=== PATIENT | male | born 1950 | race Caucasian/White ===

== ENCOUNTER 2018-08-13 14:16 | Outpatient (CLI) | payer BC, SELFPAY ==
[2018-08-13 16:40] LABS: BUN 19 mg/dL (7-18); CREATININE 1.28 mg/dL (0.70-1.30); Chloride 102 mmol/L (98-107); Estimated GFR 56.23 (mL/min/1.73m2); Glucose 98 mg/dL (70-100); Potassium 3.8 mmol/L (3.5-5.1); Sodium 142 mmol/L (136-145)
== END 2018-08-13 14:36 ==
PROVIDERS: PCP General Practice; Visit Provider General Practice
DX: I10 Essential (primary) hypertension (principal); R73.09 Other abnormal glucose
CPT/HCPCS: 36415; 80051; 82947; 84520; 82565

== ENCOUNTER 2018-10-02 08:08 | Day surgery (SDC) | payer BC, SELFPAY ==
[2018-10-02 08:20] VITALS: BP 164/94; PULSE 84; RESP 18; TEMP 37.1; O2SAT 95
[2018-10-02] MEDS: Lactated Ringers 1,000 ML 80 ML IV (08:56)
--- NOTE | 2018-10-02 11:00 | COLE_ITS ---
Date of service: 10/02/18 Time of Service: 10:58 Colonoscopy Report Date of procedure: 10/02/18 Pre-op diagnosis general: rectal bleeding Post-op diagnosis procedure note: same Procedure: CE Surgeon: Shanel Anderson Anesthesia proc note operative: GETA Estimated blood loss (mL): 0 Pathology: none sent Complications: None Disposition: PACU Prep: Miralax Retraction Time: 10 mins Procedure Description: After informed consent was obtained the patient was taken to the procedure room and placed in a left decubitous position. Monitors were applied and a time out was done. The patients name, date of , procedure, allergies to medications and metal in their body was reviewed. The patient was then sedated. Once sedated and comfortable a rectal exam was done. External exam minor hemorrhoidal Dx. Internal exam revealed a normal sphincter tone and no palpable masses. The prostate nl. The scope was then introduced and retrofelexed. grade 1 internal hemorrhoids were identified. The scope was then advanced to the cecum without difficulty. The TI and appendiceal orifice were identified. The prep was good. The scope was then slowly retracted over 10 minutes back into the rectum. The scope was removed and the patient was woken up and taken back to Same day surgery in stable condition. The patient tolerated the procedure well and there were no immediate co mplications. Follow up: The patient does not reqire any further CE unless they develop changes in bowel habits or other new gastrointestinal complaints.
--- NOTE | 2018-10-02 11:00 | W.PM.DSUDISC ---
Discharge Plan Disposition Patient Disposition: HOME Condition: Good Discharge Details Reason For Visit: colon scope Attending Provider: Shanel Anderson Primary Care Provider: Freddy Mcdowell Home Meds and New Rx's Prescriptions: Continued losartan 100 mg tablet 100 mg PO DAILY RF: 0 atenolol 25 MG tablet 25 mg PO DAILY RF: 0 hydrochlorothiazide 12.5 MG capsule 12.5 mg PO DAILY RF: 0 Discontinued polyethylene glycol 3350 17 gram/dose powder 238 g PO ONCE Qty: 238 RF: 0 bisacodyl [Dulcolax (bisacodyl)] 5 mg tablet,delayed release (DR/EC) 5 mg PO ONCE Qty: 4 RF: 0 Discharge Instructions Instructions: High Fiber Diet (GEN) Additional Instructions: Findings:minimal hemorrhoidal Dx Follow up: does not require further scope. Start fiber product. Work up to BID dosing Please call if you develop: fevers >101.5 Nausea or Vomiting Abdominal pain that is not transient DAY SURGERY UNIT POST COLONOSCOPY INSTRUCTIONS 1. Because there will be medication in your system for the next 24 hours, you may feel a little sleepy. Your coordination will be affected. Therefore: a. Do not drive or operate dangerous equipment for 24 hours. b. Do not drink alcohol beverages for 24 hours (not even beer). c. Plan to go home and rest for the day. 2. Generally there are no restrictions on your activity after a day or so has gone by, but you may feel a bit fatigued for a few days. 3 After you arrive home you may have a light meal and return to a normal diet as you can tolerate it without feeling sick to your stomach. 4. After surgery, you may feel pain or discomfort. This should be only transient, but if it persists please contact your doctor. 5. If there are any questions regarding the findings of your procedure, please feel free to contact your doctor. 6. If you are unable to contact your doctor with a problem, contact the hospital at [phone]. 7. Continue all your regular medications unless directed otherwise. I understand the above instructions and have no questions. Signature of Patient or Responsible Adult Escort Date/Time Name of Responsible Adult Escort Signature of Nurse Date/Time Activity:: nl heavy lifting or strenuous acitvity x 24 hrs Shower/Bathe:: 24 hours Diet:: sm lt meals Discharge Orders Discharge Orders: Discharge Order (Routine); Ordered 10/02/18 Ordered By: Shanel Anderson DS: Diagnosis Discharge Diagnosis (1) Hemorrhoids: Status: Acute
[2018-10-02 11:35] VITALS: BP 160/86; PULSE 70; RESP 16; TEMP 37.2; O2SAT 95
== END 2018-10-02 12:50 | disposition home or self-care (01) ==
PROVIDERS: PCP General Practice; Visit Provider Surgery
PROC: 0DJD8ZZ Inspection of Lower Intestinal Tract, Via Natural or Artificial Opening Endoscopic (ICD-10-PCS; CPT 45378; principal; 2018-10-02 09:00)
DX: Z12.11 Encounter for screening for malignant neoplasm of colon (principal); K62.5 Hemorrhage of anus and rectum; K64.0 First degree hemorrhoids; I10 Essential (primary) hypertension
CPT/HCPCS: 45378

== ENCOUNTER 2019-04-13 07:23 | Outpatient (CLI) | payer BC, SELFPAY ==
[2019-04-13 08:24] LABS: Glucose 107 mg/dL (74-106)
== END 2019-04-13 07:43 ==
PROVIDERS: PCP General Practice; Visit Provider General Practice
DX: R73.09 Other abnormal glucose (principal)
CPT/HCPCS: 36415; 82947

== ENCOUNTER 2019-06-01 07:33 | Emergency (ER) | payer BC, SELFPAY ==
[2019-06-01 07:41] VITALS: BP 189/108; PULSE 77; RESP 16; TEMP 36.8; O2SAT 94
--- NOTE | 2019-06-01 07:58 | ED.GENADUL_ITS ---
Discharge Plan Disposition Patient Disposition: HOME Condition: Stable Discharge Details Chief Complaint: RespSymp Clinical Impression: Acute upper respiratory infection Primary Care Provider: None,None ED Provider: Mak Royal Home Meds and New Rx's Prescriptions: New prednisone 20 mg tablet 60 mg PO DAILY 4 Days Qty: 12 RF: 0 doxycycline hyclate 100 mg tablet 100 mg PO BID Qty: 14 RF: 0 Continued losartan 100 mg tablet 100 mg PO DAILY RF: 0 atenolol 25 MG tablet 25 mg PO DAILY RF: 0 hydrochlorothiazide 12.5 MG capsule 12.5 mg PO DAILY RF: 0 ibuprofen 400 mg Tablet 400 mg PO Q6H RF: 0 Discharge Instructions Instructions: Upper Respiratory Infection (ED) Additional Instructions: I placed you on our follow up list to get established with a new primary care provider if you feel more ill, have high fevers or worsening trouble breathing return to the emergency department Medical Decision Making 69 yo male with hx of htn who comes in with chief complaint of cough. He felt a cough and congestion last week without fevers, felt better but this morning cough started and had some chills without fever. No distress on exam speaking in full sentences with clear lungs and laughing intermittently, has clear rhinorrhea on exam. No travel. Suspect uri but will obtain xray to eval for infiltrate and check for influenza pt remains stable, flu and xray negative on my read. Will treat as early pna with doxy and also start on prednisone. Advised f/u with pcp within a week especially if not improving and return precautions given Differential Diagnosis Differential Diagnosis: flu, uri, pna Imaging Data Radiologic Study: Attestation: I personally reviewed and interpreted this imaging study as follows: Imaging: X-Ray My impression: no acute findings HPI General Mode of arrival: ambulatory . Date/Time Provider Initiated Documentation: 06/01/19 07:54 . Limitations to Documentation: no limitations . Information obtained by: patient . History of Present Illness 69 year old M presents to the emergency department with the chief complaint of cough, described as moderate, Patient started experiencing this day(s) (1) and it has been constant. No relieving factors improve symptom(s), No exacerbating factors reported . Patient did receive the following treatments prior to arrival, none Related Data Home Medications Medication Instructions Recorded Confirmed atenolol 25 mg PO DAILY 07/30/12 06/01/19 hydrochlorothiazide 12.5 mg PO DAILY 07/30/12 06/01/19 losartan 100 mg tablet 100 mg PO DAILY 09/03/18 06/01/19 doxycycline hyclate 100 mg PO BID #14 tab 06/01/19 ibuprofen 400 mg PO Q6H 06/01/19 06/01/19 prednisone 60 mg PO DAILY 4 Days #12 tab 06/01/19 Previous Rx's Medication Instructions Recorded doxycycline hyclate 100 mg PO BID #14 tab 06/01/19 prednisone 60 mg PO DAILY 4 Days #12 tab 06/01/19 Allergies Allergy/AdvReac Type Severity Reaction Status Date / Time HIEU Inhibitors AdvReac Unknown cough Verified 06/01/19 07:48 General Stated Complaint: RespSymp NAVDEEP: 3 Review of Systems All systems reviewed & are unremarkable except as noted in HPI and below Constitutional Constitutional: Denies fever(s) and Denies weakness Cardiovascular Cardiovascular: Denies chest pain and Denies dyspnea Respiratory Respiratory: Denies dyspnea Gastrointestinal Gastrointestinal: Denies abdominal pain, Denies nausea and Denies vomiting Musculoskeletal Musculoskeletal: Denies joint swelling Neurologic Neurologic: Denies weakness [facility] Family History (Updated 10/02/18 @ 08:22 by Kay Grace) Other Cancer Social History Smoking/Tobacco Use Status: Former Tobacco Use Alcohol Intake: current Alcohol Intake frequency: a few times a week Drug use: Never Substance use type: does not use Do you feel safe at home: Yes Do you feel safe in your relationship?: Yes Exam Const General: no acute distress Orientation: alert HENMT Head: normal to inspection Ears: external ears normal General nose exam: external nose normal Mouth: moist mucous membranes Eyes General: appearance normal, both eyes and all related structures Neck Neck: normal visual inspection Resp Effort & Inspection: normal respiratory effort and able to speak in complete sentences Cardio Rate: regular rate Skin General skin exam: no rashes or lesions noted Neuro General: alert and oriented x3 Extrem General: normal to inspection Psych Mental Status: mental status grossly normal Course Vital Signs Vital signs: Vital Signs Temperature 36.8 C 06/01/19 07:41 Pulse 77 06/01/19 07:41 Respiratory Rate 16 06/01/19 07:41 Blood Pressure 189/108 H 06/01/19 07:41 Pulse Oximetry 94 L 06/01/19 07:41 Temperature 36.8 C 06/01/19 07:41 Temperature Source Temporal Artery Scan 06/01/19 07:41 Pulse 77 06/01/19 07:41 Respiratory Rate 16 06/01/19 07:41 Respiratory Effort Non-Labored 06/01/19 07:45 Respiratory Depth Normal 06/01/19 07:45 Blood Pressure 189/108 H 06/01/19 07:41 Blood Pressure Position Sitting 06/01/19 07:41 Pulse Oximetry 94 L 06/01/19 07:41 Oxygen Delivery Method Room Air 06/01/19 07:41 Oxygen Flow Rate 0 06/01/19 07:41 Pain Level 0 06/01/19 07:41 Lab/Test Results Lab/Test Results: 06/01/19 07:46 Nasopharynx Influenza Types A,B Antigen - Pending
--- NOTE | 2019-06-01 08:15 | DI.RAD_ITS ---
EXAM: XR CHEST 2V PA LATERAL INDICATION: cough. COMPARISON: CHEST 2 VIEWS PA,LAT from 08/11/2015 TECHNIQUE: 2D digital imaging was performed. FINDINGS: The heart is enlarged, unchanged. The lungs appear clear. No infiltrate, effusion or pulmonary mya a is seen. No acute abnormality.
[2019-06-01 08:53] VITALS: BP 161/91; PULSE 78; RESP 20; TEMP 36.8; O2SAT 98
[2019-06-01 08:58] VITALS: BP 161/91; PULSE 78; RESP 20; TEMP 36.8; O2SAT 98
== END 2019-06-01 08:58 | disposition home or self-care (01) ==
PROVIDERS: Emergency Provider Emergency Medicine
DX: J06.9 Acute upper respiratory infection, unspecified (principal); R68.3 Clubbing of fingers; I10 Essential (primary) hypertension; Z87.891 Personal history of nicotine dependence
CPT/HCPCS: 87449; 99283; 71046; 99284

== ENCOUNTER 2019-12-23 10:53 | Outpatient (REF) | payer BC, SELFPAY ==
[2019-12-23 21:14] LABS: Hemoglobin A1C 5.6 % (3.8-5.6)
[2019-12-23 21:53] LABS: ALT 26 U/L (16-63); AST 14 U/L (15-37); Alkaline Phosphatase 62 U/L (46-116); Anion Gap 8.6 mmol/L (3-11); BUN 20 mg/dL (7-18); Bilirubin, Total 0.5 mg/dL (0.2-1.0); CO2 28.4 mmol/L (21.0-32.0); CREATININE 1.08 mg/dL (0.70-1.30); Calcium 9.4 mg/dL (8.5-10.1); Calculated LDL 113 mg/dL (<100); Chloride 106 mmol/L (98-107); Cholesterol 168 mg/dL (<200); Glucose 98 mg/dL (74-106); HDL Cholesterol 37 mg/dL (40-60); Potassium 3.9 mmol/L (3.5-5.1); Sodium 143 mmol/L (136-145); Total Protein 6.8 g/dL (6.4-8.2); Triglyceride 93 mg/dL (<150)
[2019-12-27 08:41] LABS: PSA, Screening 2.1 ng/mL (0.0-4.5)
== END 2019-12-23 11:13 ==
LOC: NCHCN 10:53
PROVIDERS: PCP Physician Assistant; Visit Provider Physician Assistant
DX: I10 Essential (primary) hypertension (principal); R73.03 Prediabetes; Z12.5 Encounter for screening for malignant neoplasm of prostate
CPT/HCPCS: 80053; 80061; 84153; 83036

== ENCOUNTER 2020-01-19 09:15 | Outpatient (CLI) | payer BC, SELFPAY ==
--- NOTE | 2020-01-19 09:15 | DI.RAD_ITS ---
EXAM: XR SHOULDER RT COMPLETE 2+V CLINICAL HISTORY: right shoulder pain TECHNIQUE: COMPARISON: CR RIGHT SHOULDER COMPLETE from 12/02/2013 FINDINGS: Three views were obtained. There is severe loss of the cartilaginous joint space of the glenohumeral joint with marked remodeling of the humeral head and glenoid fossa, very prominent hypertrophic merari inal osteophytes are noted particularly inferiorly at the humeral head. There is marked subchondral sclerosis and cyst formation. Moderate hypertrophic degenerative changes acromioclavicular joint as well. IMPRESSION: End-stage degenerative changes of glenohumeral joint as described above. RADIATION DOSE DELIVERED: Total DLP
--- NOTE | 2020-01-19 09:45 | DI.RAD_ITS ---
EXAM: XR KNEE RT 3V AP,LAT,NOAH CLINICAL HISTORY: right knee pain TECHNIQUE: COMPARISON: CR RIGHT KNEE 3 VIEWS from 09/10/2012 FINDINGS: Three views were obtained. There is severe narrowing of the medial tibiofemoral cartilaginous joint space. There are very prominent hypertrophic marginal osteophytes involving all joints of the knee. There is marked subchondral sclerosis of the components of the medial tibiofemoral joint. IMPRESSION: Severe DJD predominantly involving medial tibiofemoral joint. RADIATION DOSE DELIVERED: Total DLP
== END 2020-01-19 09:35 ==
PROVIDERS: PCP Physician Assistant; Referring Provider Physician Assistant; Visit Provider Student in an Organized Health Care Education/Training Program
DX: M17.11 Unilateral primary osteoarthritis, right knee (principal); M19.011 Primary osteoarthritis, right shoulder
CPT/HCPCS: 73562; 73030

== ENCOUNTER 2020-03-03 15:37 | Emergency (ER) | payer BC, SELFPAY ==
[2020-03-03 15:47] VITALS: BP 157/80; PULSE 75; RESP 14; TEMP 36.2; O2SAT 96
--- NOTE | 2020-03-03 16:15 | ED.GENADUL_ITS ---
Discharge Plan Disposition Patient Disposition: HOME Condition: Stable Discharge Details Clinical Impression: Lumbago, Degenerative arthritis of lumbar spine Primary Care Provider: Reece Pastrana ED Provider: Yoanna Pedersen Home Meds and New Rx's Prescriptions: New tramadol 50 mg tablet 50 mg PO BID PRN (Reason: pain) Qty: 7 RF: 0 cyclobenzaprine 10 mg tablet 10 mg PO TID PRN (Reason: muscle spasm) Qty: 10 RF: 0 Continued hydrochlorothiazide 12.5 mg capsule 25 mg PO DAILY RF: 0 atenolol 25 mg tablet 50 mg PO DAILY RF: 0 losartan 100 mg tablet 100 mg PO DAILY RF: 0 ibuprofen 400 mg Tablet 400 mg PO Q6H RF: 0 Discharge Instructions Instructions: Low Back Strain (ED), Degenerative Disc Disease (ED) Additional Instructions: Follow up with primary care provider in 3-5 days. Return to ED sooner if any worsening or concerns. Increase oral fluids. Please take Tylenol or Ibuprofen with food every 4-6 hours as needed for pain and swelling. Alternate ice and heat. Take medications as prescribed. Return for any loss of bowel or bladder control, numbness tingling or any worsening. Referrals: Reece Pastrana [Primary Care Provider] - Discharge Data Discharge Date/Time-TO BE ENTERED AT DEPARTURE: 03/03/20 17:26 Medical Decision Making 70 year old male presents with right lower lumbar and hip pain which he first noticed 1 week ago. He reports he was twisting while carrying some heavy items and it increased. Denies any saddle anesthesia, no loss of bowel or bladder. He has been taking Aleve and ibuprofen with little to no relief. Has a history of arthritis of knee, hemorrhoids, hypertension. X-ray of lumbar spine and right hip ordered. Patient received Flexeril, tramadol, and lidocaine patch here in department. Imaging protocol: XR Right hip with pelvis when performed. Views: 2 or 3 views. COMPARISON: No relevant prior studies available. FINDINGS: Bones/joints: No acute fracture or dislocation. Mild bilateral hip joint space narrowing. Soft tissues: Unremarkable. IMPRESSION: 1. No acute fracture or dislocation of the right hip. 2. Mild joint space narrowing. Imaging protocol: XR of the lumbosacral spine, 4 or 5 views. COMPARISON: No relevant prior studies available. FINDINGS: Bones/joints: The vertebral body heights and the alignment are well preserved. Mild L4-L5 disc space narrowing. Moderate to severe narrowing at the remainder of the levels. Multilevel anterior osteophytes as well as lateral osteophytes. Posterior facet hypertrophy with moderate neural foraminal narrowing at L5-S1. Soft tissues: Unremarkable. Vasculature: Severe atherosclerotic vascular calcifications of the abdominal aorta. IMPRESSION: Moderate to severe multilevel degenerative disease in the lumbar spine with moderate L5-S1 neural foraminal narrowing likely due to osteophytes and facet hypertrophy. Thank you for allowing us to participate in the care of your patient. Dictated and Authenticated by: Jonathan Klein MD Discussed x-ray results with patient verbalized understanding. Patient was given a prescription for tramadol and a muscle relaxer and instructed to follow- up. Discussed strict return instructions. Patient was hemodynamically stable at the time of this dictation. This text was generated using [employer]ation system, please disregard any oddities of phrase or misspellings. HPI General Mode of arrival: ambulatory . Date/Time Provider Initiated Documentation: 03/03/20 16:04 . Limitations to Documentation: no limitations . Information obtained by: patient . HPI Narrative: 70 year old male presents with right lower lumbar and hip pain which he first noticed 1 week ago. He reports he was twisting while carrying some heavy items and it increased. Denies any saddle anesthesia, no loss of bowel or bladder. He has been taking Aleve and ibuprofen with little to no relief. Has a history of arthritis of knee, hemorrhoids, hypertension. Related Data Home Medications Medication Instructions Recorded Confirmed losartan 100 mg tablet 100 mg PO DAILY 09/03/18 03/03/20 ibuprofen 400 mg PO Q6H 06/01/19 01/19/20 atenolol 25 mg tablet 50 mg PO DAILY tab 01/12/20 03/03/20 hydrochlorothiazide 12.5 mg capsule 25 mg PO DAILY cap 01/12/20 03/03/20 cyclobenzaprine 10 mg PO TID PRN #10 tab 03/03/20 tramadol 50 mg PO BID PRN #7 tab 03/03/20 Previous Rx's Medication Instructions Recorded cyclobenzaprine 10 mg PO TID PRN #10 tab 03/03/20 tramadol 50 mg PO BID PRN #7 tab 03/03/20 Allergies Allergy/AdvReac Type Severity Reaction Status Date / Time HIEU Inhibitors AdvReac Unknown cough Verified 03/03/20 15:53 General Stated Complaint: Nk/Back Pain NAVDEEP: 3 Review of Systems Narrative: Constitutional: Negative for weight loss, alert and oriented, well groomed, normal body habitus, appears comfortable. HEENT: Denies trauma, headaches, blurry vision, nasal discharge, sore throat, trouble swallowing. Chest: Denies chest pain, palpitations, irregular rhythm, hypertension. Respiratory: Denies Shortness of breath, cough, hemoptysis. GI: Denies abdominal pain, nausea, vomiting, diarrhea, constipation. : Denies dysuria, hematuria, flank pain, rectal bleeding. Neuro: Denies dizziness, blurry vision, weakness, syncope, headache or facial numbness. Hematologic: Denies easy bruising, intolerance to heat or cold, hair loss. PFSH Medical History Blood per rectum Constipation HTN (hypertension) Surgical History History of colonoscopy Family History Other Cancer Social History Smoking/Tobacco Use Status: Former Tobacco Use Smoking risk assessment performed?: Yes Alcohol Intake: current Alcohol Intake frequency: a few times a week Drug use: Never Substance use type: does not use Current gender identity: male Do you feel safe at home: Yes Do you feel safe in your relationship?: Yes Exam Narrative Exam Narrative: Constitutional: Alert and oriented x3. Appears stated age. Normal body habitus. Head: Normocephalic, no trauma. Eyes: Pupils PERRLA, Red reflex noted, EOM's intact. Eyelids symmetrical without lesions, discharge, or swelling. ENT: Bilateral TM's WNL, External ear normal to inspection, no mastoid TTP, swelling, or erythema, Nasal turbinates WNL, no nasal discharge. Normal dentition, Posterior pharynx WNL, no exudate. Chest: RRR, Normal S1, S2, distal pulses intact. Resp: Lungs clear to auscultation bilaterally, no wheezes, rales, or rhonchi. Musculoskeletal: Normal gait, 5/5 strength to all four extremities. Complaining of right lower lumbar tenderness and right hip pain described as spasm. No midline spine tenderness or step-off noted. Skin: No suspicious rashes or lesions. Capillary refill less than 2 sec. Neurologic: Cranial nerves II-XII intact. Alert and oriented x 3. DTR's intact. Hematologic/Lymphatic: No ecchymosis, no lymphadenopathy. Course Vital Signs Vital signs: Vital Signs Temperature 36.2 C L 03/03/20 15:47 Pulse 75 03/03/20 15:47 Respiratory Rate 14 03/03/20 15:47 Blood Pressure 157/80 H 03/03/20 15:47 Pulse Oximetry 96 03/03/20 15:47 Temperature 36.2 C L 03/03/20 15:47 Pulse 75 03/03/20 15:47 Respiratory Rate 14 03/03/20 15:47 Respiratory Effort Non-Labored 03/03/20 15:53 Blood Pressure 157/80 H 03/03/20 15:47 Blood Pressure Position Sitting 03/03/20 15:47 Pulse Oximetry 96 03/03/20 15:47 Oxygen Delivery Method Room Air 03/03/20 15:47 Oxygen Flow Rate 0 03/03/20 15:47 Pain Level 10 03/03/20 15:47 Comment 03/03/20 15:47
[2020-03-03] MEDS: traMADol 50 MG TAB PO (16:45)
[2020-03-03] MEDS: Lidocaine 5% Patch 1 PATCH TP (16:45)
[2020-03-03] MEDS: Cyclobenzaprine 10 MG TAB PO (16:45)
--- NOTE | 2020-03-03 16:48 | DI.RAD_ITS ---
EXAM: XR LUMBAR SPINE COMPLETE CLINICAL HISTORY: Lower lumbar, hip pain. TECHNIQUE: 2D digital imaging was performed. COMPARISON: No exams were available for comparison FINDINGS: There are 5 lumbar type vertebral bodies. There is normal alignment. No spondylolysis or spondyloli sthesis. Moderate to severe joint space narrowing is present. The findings are most marked at the L 2-3 and L5-S1 disc levels. There are endplate osteophytes at multiple levels. Facet arthropathy see n throughout the lumbar spine. No acute fracture or subluxation is present. There is atherosclerosi s present. IMPRESSION: Moderate to severe multilevel degenerative changes in the lumbar spine. DATA REPOSITORY: RADIATION DOSE DELIVERED:
--- NOTE | 2020-03-03 16:48 | DI.RAD_ITS ---
EXAM: XR HIP RT COMPLETE AP PELVIS CLINICAL HISTORY: Right hip pain. TECHNIQUE: 2D digital imaging was performed. COMPARISON: No exams were available for comparison FINDINGS: BONES: No acute fracture is present. No bony destructive lesion is seen. JOINTS: No dislocation present. Mild degenerative changes of the hips bilaterally. SOFT TISSUE: Normal. IMPRESSION: No acute abnormality. Mild degenerative changes of the hips. DATA REPOSITORY: RADIATION DOSE DELIVERED:
--- NOTE | 2020-03-03 16:58 | DI.VRAD_ITS ---
PROCEDURE INFORMATION: Exam: XR Lumbosacral Spine, 4 or 5 Views Exam date and time: 03/03/2020 4:43 PM Age: 70 years old Clinical indication: Low back pain; Patient HX: Lower lumbar RT hip pain/ no trauma TECHNIQUE: Imaging protocol: XR of the lumbosacral spine, 4 or 5 views. COMPARISON: No relevant prior studies available. FINDINGS: Bones/joints: The vertebral body heights and the alignment are well preserved. Mild L4-L5 disc space narrowing. Moderate to severe narrowing at the remainder of the levels. Multilevel anterior osteophytes as well as lateral osteophytes. Posterior facet hypertrophy with moderate neural foraminal narrowing at L5-S1. Soft tissues: Unremarkable. Vasculature: Severe atherosclerotic vascular calcifications of the abdominal aorta. IMPRESSION: Moderate to severe multilevel degenerative disease in the lumbar spine with moderate L5-S1 neural foraminal narrowing likely due to osteophytes and facet hypertrophy. Dictated and Authenticated by: Jonathan Klein MD. Ordering:JULIO Lenz MD
--- NOTE | 2020-03-03 16:59 | DI.VRAD_ITS ---
PROCEDURE INFORMATION: Exam: XR Right Hip with Pelvis when Performed Exam date and time: 03/03/2020 4:43 PM Age: 70 years old Clinical indication: Right hip; Patient HX: RT hip pain/back pain TECHNIQUE: Imaging protocol: XR Right hip with pelvis when performed. Views: 2 or 3 views. COMPARISON: No relevant prior studies available. FINDINGS: Bones/joints: No acute fracture or dislocation. Mild bilateral hip joint space narrowing. Soft tissues: Unremarkable. IMPRESSION: 1. No acute fracture or dislocation of the right hip. 2. Mild joint space narrowing. Dictated and Authenticated by: Jonathan Klein MD. Ordering:JULIO Lenz MD
[2020-03-03 17:25] VITALS: BP 140/79; PULSE 75; RESP 14; TEMP 36.5; O2SAT 96
== END 2020-03-03 17:26 | disposition home or self-care (01) ==
PROVIDERS: Emergency Provider Registered Nurse Emergency; PCP Physician Assistant
DX: M47.896 Other spondylosis, lumbar region (principal); M25.551 Pain in right hip; I10 Essential (primary) hypertension
CPT/HCPCS: 99284; 72110; 73502

== ENCOUNTER 2020-05-16 01:30 | Outpatient (CLI) | payer BC, SELFPAY ==
--- NOTE | 2020-05-16 | DI.US_ITS ---
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 The no mural thrombus is seen. IMPRESSION: No evidence of abdominal aortic aneurysm. DATA REPOSITORY:
== END 2020-05-16 01:50 ==
PROVIDERS: PCP Nurse Practitioner Family; Visit Provider Nurse Practitioner Family
DX: Z87.891 Personal history of nicotine dependence (principal); Z00.00 Encounter for general adult medical examination without abnormal findings
CPT/HCPCS: 76706

== ENCOUNTER 2020-12-26 13:25 | Outpatient (REF) | payer BC, SELFPAY ==
[2020-12-26 14:29] LABS: Anion Gap 9.2 mmol/L (3-11); BUN 24 mg/dL (7-18); CO2 27.8 mmol/L (21.0-32.0); CREATININE 1.3 mg/dL (0.70-1.30); Calcium 9.4 mg/dL (8.5-10.1); Chloride 108 mmol/L (98-107); Glucose 106 mg/dL (74-106); Potassium 3.9 mmol/L (3.5-5.1); Sodium 145 mmol/L (136-145)
[2020-12-26 15:06] LABS: Hemoglobin A1C 5.6 % (<5.7)
== END 2020-12-26 13:26 | disposition home or self-care (01) ==
LOC: NCHCN 13:25
PROVIDERS: PCP Nurse Practitioner Family; Visit Provider Internal Medicine
DX: R73.03 Prediabetes (principal); I10 Essential (primary) hypertension
CPT/HCPCS: 80048; 83036

== ENCOUNTER 2021-07-12 03:04 | Outpatient (CLI) | payer BC, SELFPAY ==
--- NOTE | 2021-07-12 09:00 | NS.NUTBLAN_ITS ---
Fito was referred for weight management education. 5' 300 lbs BMI: 44. Fito reports he has gained 30 lbs during covid due to lack of exercise. He is back to working and his more active again. 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 PMH: HTN, obesity, prediabetes. Meds: meloxicam, atenolol and losartan. Most recent labs: A1C: 5.6% x second year. Goal weight for Fito is 270 lbs. Sleeps from 11 pm to 3:30 am most nights. Having difficulty staying asleep. Reports continued concern about covid 19. Diet recall: skips breakfast and lunch. Has well balanced dinner at night with bowl of ice cream. Does not drink alcohol. Recent weight gain most likely due to decrease in activity, eating once daily and lack of sleep. Session today focused on ways to increase po intake during day to help increase metabolism. 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 When not working, would benefit from more exercise once knee and shoulder pain treated. Encouraged Fito to talk to his PCP re: difficulty sleeping as his current lack of sleep may be contributing to weight gain. No follow up planned at this time.
== END 2021-07-12 03:05 | disposition home or self-care (01) ==
LOC: DS 03:04
PROVIDERS: PCP Nurse Practitioner Family; Visit Provider Dietitian, Registered
DX: E66.8 Other obesity (principal); Z68.41 Body mass index [BMI] 40.0-44.9, adult; Z71.3 Dietary counseling and surveillance
CPT/HCPCS: 97802

== ENCOUNTER 2021-12-11 20:18 | Outpatient (REF) | payer MEDICARE, BC, SELFPAY ==
[2021-12-11 14:49] LABS: HCT 46.4 % (40.0-50.0); HGB 16.2 g/dL (13.5-17.5); MCH 29.5 pg (27.0-33.0); MCHC 34.9 % (32.0-36.0); MCV 84 fL (80-95); MPV 10.6 fL (8.0-11.0); Platelet Count 197 10^3/uL (130-400); RDW 13.4 % (11.8-14.1); RDW-SD 41.2 fL; WBC 6.26 10^3/uL (4.4-10.8)
[2021-12-11 15:12] LABS: ALT 27 U/L (16-63); AST 22 U/L (15-37); Alkaline Phosphatase 63 U/L (46-116); Anion Gap 9.9 mmol/L (3-11); BUN 19 mg/dL (7-18); Bilirubin, Total 0.7 mg/dL (0.2-1.0); CO2 27.1 mmol/L (21.0-32.0); CREATININE 1.3 mg/dL (0.70-1.30); Calcium 9.1 mg/dL (8.5-10.1); Chloride 104 mmol/L (98-107); Estimated GFR 54.73 (mL/min/1.73m2); Glucose 108 mg/dL (74-106); Potassium 3.8 mmol/L (3.5-5.1); Sodium 141 mmol/L (136-145); Total Protein 7.2 g/dL (6.4-8.2)
== END 2021-12-11 20:19 | disposition home or self-care (01) ==
LOC: NCHCN 20:18
PROVIDERS: PCP Nurse Practitioner Family; Visit Provider Nurse Practitioner Family
DX: I10 Essential (primary) hypertension (principal); E66.9 Obesity, unspecified; R73.03 Prediabetes
CPT/HCPCS: 80053; 84153; 85027

== ENCOUNTER 2021-12-18 08:49 | Outpatient (REF) | payer MEDICARE, BC, SELFPAY ==
[2021-12-18 16:41] LABS: Hemoglobin A1C 5.7 % (<5.7)
[2021-12-18 22:34] LABS: PSA, Diagnostic 2.7 ng/mL (<=4.5)
== END 2021-12-18 08:50 | disposition home or self-care (01) ==
LOC: NCHCN 08:49
PROVIDERS: PCP Nurse Practitioner Family; Visit Provider Family Medicine
DX: Z00.00 Encounter for general adult medical examination without abnormal findings (principal); I10 Essential (primary) hypertension; R73.03 Prediabetes; Z12.5 Encounter for screening for malignant neoplasm of prostate
CPT/HCPCS: 83036; 84153

== ENCOUNTER 2022-12-26 09:59 | Outpatient (REF) | payer MEDICARE, BC, SELFPAY ==
[2022-12-26 15:49] LABS: Abs Immature Grans 0.02 10^3/uL (0.0-0.06); Absolute Basophil Count 0.08 10^3/uL (0.0-0.2); Absolute Eosinophil Count 0.21 10^3/uL (0.0-0.7); Absolute Lymphocyte Count 1.03 10^3/uL (1.2-3.4); Absolute Monocyte Count 0.53 10^3/uL (0.1-0.8); Absolute Neutrophil Count 4.71 10^3/uL (1.2-6.7); Basophils % 1.2; Eosinophils % 3.2; HCT 45.6 % (40.0-50.0); HGB 15.5 g/dL (13.5-17.5); Immature Grans % 0.3; Lymphocytes % 15.7; MCH 28.5 pg (27.0-33.0); MCV 84 fL (80-95); MPV 10.5 fL (8.0-11.0); Monocytes % 8.1; Neutrophils % 71.5; Platelet Count 191 10^3/uL (130-400); RBC 5.43 10^6/uL (4.36-5.78); RDW 14.3 % (11.8-14.1); RDW-SD 43.3 fL; WBC 6.58 10^3/uL (4.4-10.8)
[2022-12-26 16:22] LABS: Hemoglobin A1C 5.7 % (<5.7)
[2022-12-26 16:27] LABS: ALT 22 U/L (16-63); AST 14 U/L (15-37); Alkaline Phosphatase 70 U/L (46-116); Anion Gap 9.1 mmol/L (3-11); BUN 26 mg/dL (7-18); Bilirubin, Total 0.7 mg/dL (0.2-1.0); CO2 28.9 mmol/L (21.0-32.0); CREATININE 1.3 mg/dL (0.70-1.30); Calcium 9.3 mg/dL (8.5-10.1); Chloride 103 mmol/L (98-107); Glucose 107 mg/dL (74-106); Potassium 3.4 mmol/L (3.5-5.1); Sodium 141 mmol/L (136-145); Total Protein 6.9 g/dL (6.4-8.2)
== END 2022-12-26 10:00 | disposition home or self-care (01) ==
LOC: NCHCN 09:59
PROVIDERS: PCP Nurse Practitioner Family; Visit Provider Family Medicine
DX: I10 Essential (primary) hypertension (principal); R73.03 Prediabetes; F41.8 Other specified anxiety disorders; M25.511 Pain in right shoulder
CPT/HCPCS: 80053; 83036; 85025

== ENCOUNTER 2023-07-01 17:31 | Outpatient (REF) | payer MEDICARE, BC, SELFPAY ==
[2023-07-01 15:45] LABS: Anion Gap 9.7 mmol/L (3-11); BUN 29 mg/dL (7-18); CO2 30.3 mmol/L (21.0-32.0); CREATININE 1.4 mg/dL (0.70-1.30); Calcium 9.7 mg/dL (8.5-10.1); Chloride 104 mmol/L (98-107); Estimated GFR 53.74 (mL/min/1.73m2); Glucose 100 mg/dL (74-106); Sodium 144 mmol/L (136-145)
[2023-07-01 17:07] LABS: Hemoglobin A1C 5.5 % (<5.7)
== END 2023-07-01 17:32 | disposition home or self-care (01) ==
LOC: NCHCN 17:31
PROVIDERS: PCP Nurse Practitioner Family; Referring Provider Family Medicine; Visit Provider Family Medicine
DX: R73.03 Prediabetes (principal); I10 Essential (primary) hypertension
CPT/HCPCS: 80048; 83036

== ENCOUNTER → 2023-10-20 04:42 | Outpatient (CLI) | payer MEDICARE, BC, SELFPAY ==
--- NOTE | 2023-10-20 09:02 | DI.RAD_ITS ---
Exam(s) XR HIP PELVIS ADULT BL EXAM: XR HIP PELVIS ADULT BL CLINICAL HISTORY: HIP PAIN, UNSPECIFIED,M25.559. TECHNIQUE: 2D digital imaging was performed. Three views. COMPARISON: No exams were available for comparison FINDINGS: BONES: No acute fracture is present. No bony destructive lesion is seen. Enthesophytes at the iliac wings. Large spurs in both obturator foramen, left greater than right. JOINTS: No dislocation present. The hip joint spaces are maintained. Mild acetabular spurring bila terally. SI joints and pubic symphysis are unremarkable. SOFT TISSUE: Normal. IMPRESSION: Mild degenerative changes. DATA REPOSITORY: RADIATION DOSE DELIVERED:
== END ==
PROVIDERS: PCP Nurse Practitioner Family; Visit Provider Family Medicine
DX: M16.0 Bilateral primary osteoarthritis of hip (principal)
CPT/HCPCS: 73521

== ENCOUNTER 2024-01-14 11:22 | Outpatient (REF) | payer MEDICARE, BC, SELFPAY ==
--- OUTSIDE RECORDS SUMMARY | 2024-01-14 11:34 | XMS_ITS | Encounter Summary ---
Author Organization [facility] [place] [address] Care Team Providers Care Computer System Technician Name Role Phone Freddy Mcdowell MD Primary Care Provider [phone] Encounter Details Date Type Department Care Team (Late st Contact Info) Description 09/17/2012 External Results [place] [address] Mak Ace, [facility] [address] Social History Tobacco Use Types Packs/Day Years Used Date Smoking Tobacco: Former Cigarettes Q uit: 09/18/1979 Alcohol Use Standard Drinks/Week Comments Yes 1.7 (1 standard drink = 0.6 oz p ure alcohol) Sex and Gender Information Value Date Recorded Sex Assigned at Not on file Gender Identity Not on file Sexual Orientation Not on file documented as of this encounter Plan of Treatment Not on file documented as of this encounter Procedures Procedure Name Priority Date/Time Associated Diagnosis Comments AUDIOLOGY SCAN Routine 09/17/2012 10:55 AM EDT documented in this encounter Visit Diagnoses Not on filedocumented in this encounter Care Teams Computer System Technician Relationship Specialty Start Date End Date Freddy Mcdowell MD PCP - General 09/17/12 05/04/19 documented as of this encounter
--- OUTSIDE RECORDS SUMMARY | 2024-01-14 11:34 | XMS_ITS | Clinical Summary ---
Author Organization [facility] Address [facility] [place] [address] Care Team Providers Care Industrial Ecologist Name Role Phone Unknown Primary Care Provider Unavailabl e Allergies No known active allergies Medications Medication Sig Dispensed Refills Start Date End Date Status hydrochlorothiazide (HYDRODIURIL) 25 mg tablet Take 25 mg by mouth daily. Active atenolol (TENORMIN) 25 mg tablet Take 25 mg by mouth daily. 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 Cholesteatoma 09/17/2012 Family History Medical History Relation Comments Lung Cancer Father Hearing Loss Mother Relation Status Comments Father Mother Social History Tobacco Use Types Packs/Day Years Used Date Smoking Tobacco: Former Cigarettes Q uit: 09/18/1979 Alcohol Use Standard Drinks/Week Comments Yes 1.7 (1 standard drink = 0.6 oz p ure alcohol) Sex and Gender Information Value Date Recorded Sex Assigned at Not on file Gender Identity Not on file Sexual Orientation Not on file Last Filed Vital Signs Vital Sign Reading Time Taken Comments Blood Pressure 168/98 09/17/2012 8:45 AM EDT Pulse 85 09/17/2012 8:45 AM EDT Temperature - - Respiratory Rate - - Oxygen Saturation - - Inhaled Oxygen Concentration - - Weight 141.7 kg (312 lb 5 oz) 09/17/2012 8:45 AM EDT Height 180.3 cm (5' 11) 09/17/2012 8:45 AM EDT Body Mass Index 43.56 09/17/2012 8:45 AM EDT Plan of Treatment Health Maintenance Due Date Last Done Comments CT Colonography 1950 Colonoscopy 1950 Colorectal Cancer Screening 1950 FIT DNA 1950 FIT 1950 Sigmoidoscopy (10 year) with FIT yearly 1950 Sigmoidoscopy 1950 Hepatitis C Screening 1970 Lipid Screening 1970 Tdap adult 1971 Tetanus vaccine 1971 Zoster vaccine (1 of 2) 2002 Advance Directive 2007 Pneumoccocal Vaccine: 65+ (1 of 1 - PCV) 2017 Covid-19 Vaccine (1 - 2022-24 season) 2024 Influenza (Flu) vaccine (1 o f 1 - Influenza standard series) 01/04/2024 Care Teams Industrial Ecologist Relationship Specialty Start Date End Date Unknown None PCP - General 05/05/19
--- OUTSIDE RECORDS SUMMARY | 2024-01-14 11:34 | XMS_ITS | Continuity of Care Document ---
Author Organization [facility] Ambulatory Clinics Address [address] [place] [address] Care Team Providers Care Technical Sales Support Specialist Name Role Phone MELISSA ARDON Primary Care Physician [phone] Encounter [facility] NBR [id number] Date(s): 11/27/23 - 11/27/23 [facility] Ambulatory Clinics [address] [place], [place] [address] Encounter Diagnosis Degenerative arthritis of lumbar spine(Discharge Diagnosis) - 11/27/23 SI joint arthritis(Discharge Diagnosis) - 11/27/23 Discharge Disposition: Home or Self Care Attending Physician: Raj Hernandez DO Referring Physician: MELISSA ARDON Allergies, Adverse Reactions, Alerts No Known Allergies Assessment and Plan Extracted from: Title:Office Visit Note Author:Raj Hernandez DO Date:11/27/23 1.??Degenerative arthritis o f lumbar spine??M47.816 2.??SI joint arthritis??M47.818 I think in this case??his hips??are unlikely the problem at all here.?? He has had some substantial weight loss and I have encouraged that.?? I have also encouraged??him to find a way to increase his cardiovascular??exercise.?? I am going to return him to [facility] physical [facility] so that they cannot only evaluate and treat but??instruct in??home exercise program??that I think will??become??a maintenance necessity for him??indefinitely.?? I offered??to have him evaluated by our spine group and pain management service for potential??injections. ??At this point he would like to forego that.?? We can refer him??for injections potentially at any point in the future if he finds that necessary. ??We spent approximately 35 minutes together with 30 of those 35 minutes direct [id number] counseling discussing this information. Medications atenolol 50 mg oral tablet 45 EA, TAKE 1/2 TABLET BY MOUTH EVERY DAY, 0 Refill(s) Start Date: 05/22/22 Status: Ordered doxepin 10 mg oral capsule 90 EA, TAKE 1 CAPSULE BY MOUTH AT BEDTIME, INCREASE BY 1 CAPSULE EVERY FEW NIGHTS TO MAXIMUM OF 50MG ( 5 CAPSULES), 0 Refill(s) Start Date: 09/23/22 Status: Ordered hydroCHLOROthiazide 25 mg oral tablet 90 EA, TAKE 1 TABLET BY MOUTH EVERY MORNING, 0 Refill(s) Start Date: 05/22/22 Status: Ordered ibuprofen 200 mg oral tablet QID, 1 Unknown, 0 Refill(s) Start Date: 05/22/22 Status: Ordered losartan 100 mg oral tablet 90 EA, TAKE 1 TABLET BY MOUTH EVERY DAY, 0 Refill(s) Start Date: 05/22/22 Status: Ordered meloxicam 15 mg oral tablet 30 EA, TAKE 1 TABLET BY MOUTH EVERY DAY NEEDED FOR PAIN, 0 Refill(s) Start Date: 05/22/22 Status: Ordered Problem List Condition Confirmation Course Effective Dates Status H ealth Status Informant Osteoarthritis of shoulders, bilateral Confirmed Active Derangement of medial meniscus Confirmed Active Post-traumatic osteoarthritis of right knee Confirmed Active Osteoarthritis of knee Confirmed Active Sprain of medial collateral ligament of knee Confirmed Active Vital Signs Most recent to oldest [Reference Range]: 1 Peripheral Pulse Rate [60-100 bpm] 55 bp m *LOW* (11/27/23 9:14 AM) Blood Pressure [90-140/60-90 mmHg] 146/9 2mmHg *HI* (11/27/23 9:14 AM) Mean Arterial Pressure, Cuff [65-140 mmH g] 110 mmHg (11/27/23 9:14 AM) Weight 129.73 kg (11/27/23 9:14 AM) Weight Measured (lbs) 286.005 lb (11/27/23 9:14 AM) Weight Dosing 129.730 kg (11/27/23 9:14 AM) Height 175.26 cm (11/27/23 9:14 AM) Height/Length Measured (inches) 69 inch (11/27/23 9:14 AM) BSA Measured 2.51 m2 (11/27/23 9:14 AM) Body Mass Index 42.24 kg/m2 (11/27/23 9:14 AM) Social History Social History Type Response Tobacco Former tobacco user Tobacco Use:. QUIT 44 YEARS AGO per day. Sex Male Physician Outpatient Note * Raj Hernandez, DO: PERFORM Event Display: Office Clinic Note Physician Authored Date: [id number] ELIMARLEYBLANCA :1950 Age:73 years Sex:Male Visit Date:11/27/2023 Primary Care Physician: MELISSA ARDON Chief Complaint Bilateral Hip Pain History of Present Illness 73-year-old male??that??presents with several months??of what??he describes as??hip pain.?? When asked where he is??feeling pain he denies any groin pain or thigh pain. ??He denies any progressive loss of range of motion.?? He localizes his symptoms??to??the lower lumbar spine as well as??the??mid buttocks and SI joint region.?? He??denies any radiating pain distally??or any numbness??tingling or weakness.?? He has been sent to [facility] physical therapy in the past. ??He states that??after they get done working with him he feels??wonderfully but it is very short-lived.?? He describes his ability to??walk any substantial distance as quite limited because of this. Review of Systems Constitutional:?No??fevers,?No??chills,?No??sweats Eye:?No??recent visual problems ENT:?No??ear pain,?No??nasal congestion,?No??sore throat Respiratory:?No??shortness of breath,?No??cough Cardiovascular:?No??Chest pain,?No??palpitations,?No??syncope Gastrointestinal:?Nonausea,?No??vomiting,?No??diarrhea Genitourinary:?No??hematuria Kodak/Lymph:?No??bruising tendency,?No??swollen lymph glands Endocrine:?No??excessive thirst,??No??excessive hunger Musculoskeletal:??No??back pain,??No??neck pain,??Positive for??joint pain,??No??muscle pain,??No??decreased range of motion Integumentary:?No??rash,?No??pruritus,?No??abrasions Neurologic: Alert & oriented X 4 Psychiatric:?No??anxiety,?No??depression Physical Exam Vitals & Measurements HR:??55??(Peripheral)?? BP:??146/92?? SpO2:??96%?? HT:??175.26??cm?? WT:??129.73??kg?? BMI:??42.24?? Pain Score:??8?? BSA:??2.51?? On physical exam he ambulates in the office with a clearly antalgic gait that is guarded.?? Laying him on the exam table??both hips??have skin intact.?? He??is nontender??to palpation??at the greatertrochanteric region bilaterally.?? First focusing??on the right lower extremity extends to neutral without difficulty.?? He flexes to 90 degrees without difficulty. ??He has??20 degrees of internal ro tation and??60 degrees of external rotation and this is a pain-free arc of motion.?? The??left hip??has very similar mobility.?? Deep palpation??in the??lumbar region and SI joint??region??localizes his pain to this area.?? Reviewing his hip x-rays??his bilateral hips have very??mild??and minimal de generative changes.?? His??L4-L5 and S1 vertebrae are visible??on the pelvis x- ray and??are demonstrating??suboptimally??but clear??advanced??degenerative changes affecting the lumbar spine with bridging osteophytes. Assessment/Plan 1.??Degenerative arthritis of lumbar spine??M47.816 2.??SI joint arthritis??M47.818 I think in this case??his hips??are unlikely the problem at all here.?? He has had some substantialweight loss and I have encouraged that.?? I have also encouraged??him to find a way to increase hiscardiovascular??exercise.?? I am going to return him to [facility] so that they cannot only evaluate and treat but??instruct in??home exercise program??that I think will??become??a maintenance necessity for him??indefinitely.?? I offered??to have him evaluated by our spine group and pain management service for potential??injections. ??At this point he would like to forego that.?? We can refer him??for injections potentially at any point in the future if he finds that necessary. ??We spent approximately 35 minutes together with 30 of those 35 minutes direct [id number] counseling discussing this information. Problem List/Past Medical History Ongoing Derangement of medial meniscus Morbid obesity Osteoarthritis of knee Osteoarthritis of shoulders, bilateral Post-traumatic osteoarthritis of right knee Sprain of medial collateral ligament of knee Historical No qualifying data Medications atenolol 50 mg oral tablet doxepin 10 mg oral capsule hydroCHLOROthiazide 25 mg oral tablet ibuprofen 200 mg oral tablet, QID losartan 100 mg oral tablet meloxicam 15 mg oral tablet Allergies No Known Allergies No Known Medication Allergies Social History Alcohol Never Electronic Cigarette/Vaping Electronic Cigarette Use: Never. Employment/School Retired Tobacco Former tobacco user Tobacco Use:. QUIT 44 YEARS AGO per day. Family History Family history is unknown Electronically Signed on 11/27/2023 09:51 EDT Raj Hernandez DO Patient Care team information Care Team Personnel Name: MELISSA ARDON Position: No Access Member Role: Primary Care Physician Address: Address: [address] Care Team Related Persons Name: GIULIANO CRAIN Address: Home [address] [place] [address]
--- OUTSIDE RECORDS SUMMARY | 2024-01-14 11:34 | XMS_ITS | Continuity of Care Document ---
Author Organization [facility] Address [address] [place] [address] Care Team Providers Care Unhairing Machine Operator Name Role Phone SOLOMONDomiMELISSA Primary Care Physician Encounter [facility] NBR [id number] Date(s): 09/24/22 - 09/24/22 [facility] [address] [place], [place] [address] Encounter Diagnosis Osteoarthritis of shoulders, bilateral(Discharge Diagnosis) - 09/24/22 Primary osteoarthritis, left shoulder(Discharge Diagnosis) - 09/24/22 Discharge Disposition: Home or Self Care Attending Physician: Enmanuel Eugene MD Allergies, Adverse Reactions, Alerts No Known Allergies Functional Status 09/24/22 Other exposure to Infectious Disease Non e Medications atenolol 25 mg oral tablet 1 Unknown, 0 Refill(s) Start Date: 05/22/22 Status: Ordered atenolol 50 mg oral tablet 45 EA, TAKE 1/2 TABLET BY MOUTH EVERY DAY, 0 Refill(s) Start Date: 05/22/22 Status: Ordered cyclobenzaprine 10 mg oral tablet 30 EA, TAKE ONE TABLET BY MOUTH EVERY DAY NEEDED, 0 Refill(s) Start Date: 05/22/22 Status: Ordered [...] Refill(s) Start Date: 05/22/22 Status: Ordered losartan 50 mg oral tablet 0 Refill(s) Start Date: 05/22/22 Status: Ordered meloxicam 15 mg oral tablet 30 EA, TAKE 1 TABLET BY MOUTH EVERY DAY NEEDED FOR PAIN, 0 Refill(s) Start Date: 05/22/22 Status: Ordered Paxlovid 150 mg-100 mg Dose Pack oral tablet 20 EA, TAKE TWO BY MOUTH TWICE A DAY FOR 5 DAYS, 0 Refill(s) Start Date: 05/22/22 Status: Ordered [...] Range]: 1 Peripheral Pulse Rate [60-100 bpm] 77 bp m (09/24/22 8:20 AM) Blood Pressure [90-140/60-90 mmHg] 142/8 0mmHg *HI* (09/24/22 8:20 AM) Weight 124.74 kg (09/24/22 8:20 AM) Weight Measured (lbs) 275.004 lb (09/24/22 8:20 AM) Height 180.33 cm (09/24/22 8:20 AM) Height/Length Measured (inches) 71 inch (09/24/22 8:20 AM) BSA Measured 2.5 m2 (09/24/22 8:20 AM) Body Mass Index 38.36 kg/m2 (09/24/22 8:20 AM) Social History Social History Type Response Tobacco Former tobacco user Tobacco Use:. QUIT 44 YEARS AGO per day. Sex Male Hospital Discharge Instructions Follow Up Care 08/30/2022 11:29:43 With:Refer to Dr. Patel Address: When: Unknown Physician Outpatient Note * Enmanuel Eugene MD: PERFORM Event Display: Office Clinic Note Physician Authored Date: [id number] BLANCA MOORE :1950 Age:72 years Sex:Male Visit Date:09/24/2022 Primary Care Physician: MELISSA ARDON Chief Complaint BILATERAL SHOULERS History of Present Illness Please send a copy this note to Dr. Melissa Ardon. ?? 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 Thepatient is seen today??for the evaluation of bilateral shoulder pain which has been present for over 10 years.?? He was told by Dr. Cole in the past that he had a right rotator cuff tear. ??He states that his shoulders have become progressively painful and stiff. ??They are now affecting his??ADLs. ??He is unable to comb the hair on the back of his head as a result of limitation of motion. ??He believes that his symptoms are worse on the right than the left. ??He denies weakness, numbness, or tingling. ??His shoulders have been keeping him up at night but he states that once he is asleep they will not wake him. ??The patient was taking ibuprofen??and acetaminophen, and was using topical Voltaren and CBD. ??However he stopped??using??these??as he felt that they were affecting his sleep. Physical Exam Vitals & Measurements HR:??77??(Peripheral)?? BP:??142/80?? SpO2:??98%?? HT:??180.33??cm?? WT:??124.74??kg?? BMI:??38.36?? Pain Score:??7?? BSA:??2.5?? The patient's??right??upper??extremity is neurovascularly intact. ??Sensation and motor exam are intact distally. ??All digits are warm and pink.?? No Ronen deformity or obvious atrophy is present. ??Active forward elevation is to 90 degrees. ??External rotation is to 0 degrees internal rotation behind the back is to the posterior iliac crest.?? Neer and Alston signs are negative. ??Drop arm test is negative. ??Strength is 5 out of 5 in all planes. ??He has tenderness to deep palpation of theglenohumeral joint anteriorly. ??There is no tenderness overlying the AC joint or proximal bicipital groove. ??There is no tenderness about the greater tuberosity. ?? The patient's??left??upper??extremity is neurovascularly intact. ??Sensation and motor exam are intact distally. ??All digits are warm and pink.?? No Ronen deformity or obvious atrophy is present. ??Active forward elevation is to 90 degrees. ??External rotation is to 0 degrees internal rotationbehind the back is to the posterior iliac crest.?? Neer and Alston signs are negative. ??Drop arm test is negative. ??Strength is 5 out of 5 in all planes. ??He has tenderness to deep palpation of the glenohumeral joint anteriorly. ??There is no tenderness overlying the AC joint or proximal bicipital groove. ??There is no tenderness about the greater tuberosity. Assessment/Plan 1.??Osteoarthritis of shoulders, bilateral??M19.011 Primary osteoarthritis, left shoulder??M19.012 The patient demonstrates evidence of??severe bilateral??glenohumeral osteoarthritis??with likely??bone loss??and medialization of the glenoid.?? The treatment options were discussed with the patient including observation,??activity modifications,??possible therapy, possible injection therapy, and possible surgery. ??After a discussion??of the options, the patient was advised??to seek consultationfor possible prosthetic replacement as he is now losing bone stock and this may affect his ability to have shoulder replacements. ??The patient verbalized understanding and agreed to. ??We will referthe patient to see Dr. Patel for consideration of prosthetic replacement. ??All questions were answered.?? We wish the patient luck with continued care of bilateral shoulders and we will see him dayron as needed basis. ?? I personally reviewed the patient's referral, outside consultation notes, previous radiographic images and results, and relevant tests. ?? Thank you for the courtesy of this referral. Follow Up Instructions With When Contact Information Refer to Dr. Patel Additional Instructions: Problem List/Past Medical History Ongoing Derangement of medial meniscus Osteoarthritis of knee Osteoarthritis of shoulders, bilateral Post-traumatic osteoarthritis of right knee Sprain of medial collateral ligament of knee Historical No qualifying data Medications atenolol 25 mg oral tablet atenolol 50 mg oral tablet cyclobenzaprine 10 mg oral tablet doxepin 10 mg oral capsule hydroCHLOROthiazide 25 mg oral tablet ibuprofen 200 mg oral tablet, QID losartan 100 mg oral tablet losartan 50 mg oral tablet meloxicam 15 mg oral tablet Paxlovid 150 mg-100 mg Dose Pack oral tablet Allergies No Known Allergies No Known Medication Allergies Social History Alcohol Never Electronic Cigarette/Vaping Electronic Cigarette Use: Never. Employment/School Retired Tobacco Former tobacco user Tobacco Use:. QUIT 44 YEARS AGO per day. Diagnostic Results Diagnostic Study Interpretation: Indication for study: Left shoulder pain and stiffness Views: 3 views of the left shoulder ?? I personally viewed and interpreted the radiographs in the generation of this report. ?? Findings: No fracture or dislocation is observed. ??[id number] glenohumeral DJD is present with humeral head flattening and medialization of the??glenoid. ??A type II acromion is present. ??He demonstrates possible loose bodies in the subcoracoid space. ??Mild AC DJD is present. ??A large??inferior humeral head osteophyte is present. ??Visualized portions of the left lung field demonstrate no evidence of discrete masses. ? Indication for study: Right shoulder pain and stiffness Views: 3 views of the right shoulder ?? I personally viewed and interpreted the radiographs in the generation of this report. ?? Findings: No fracture or dislocation is observed. ??[id number] glenohumeral DJD is present with humeral head flattening and medialization of the glenoid. ??A large inferior humeral head osteophyte is present. ??Moderate to severe AC DJD is present. ??A type III acromion is present. ??Visualized portions of the right lung field demonstrate no evidence of discrete masses. Electronically Signed on 09/24/22 08:51 AM Enmanuel Eugene MD Patient Care team information Care Team Personnel Name: MELISSA ARDON Position: No Access Member Role: Primary Care Physician Address: Address: [address] [address]- [place]
--- OUTSIDE RECORDS SUMMARY | 2024-01-14 11:34 | XMS_ITS | Encounter Summary ---
Author Organization [facility] [place] [address] Care Team Providers Care Hvac Instructor Name Role Phone Freddy Mcdowell MD Primary Care Provider [phone] Encounter Details Date Type Department Care Team (Late st Contact Info) Description 09/17/2012 8:00 AM EDT Office Visit Audiology at [address] [address] Mka Ace, [facility] [place] [address] Mixed hearing loss, unilateral (Primary Dx) Discharge Disposition: Home Social History Tobacco Use Types Packs/Day Years Used Date Smoking Tobacco: Former Cigarettes Q uit: 09/18/1979 Alcohol Use Standard Drinks/Week Comments Yes 1.7 (1 standard drink = 0.6 oz p ure alcohol) Sex and Gender Information Value Date Recorded Sex Assigned at Not on file Gender Identity Not on file Sexual Orientation Not on file documented as of this encounter Progress Notes * Mak Ace, OSK[facility] - 09/17/2012 8:40 AM EDT AUDIOLOGY SECTION AUDIOLOGIC EV[facility]ATION [place], [place] Fito Croft was seen on 09/17/2012 for an audiologic evaluation. Please refer to the scanned audiogram listed under ???Chart Review?? and Scan Doc for findings, impressions and recommendations. It may take up to 24 hours for the audiogram to be scanned. Steven Harvey, -[facility] Clinical Call Circuit Worker [facility] [place] [address] ; [phone] (fax) [email or web address] documented in this encounter Plan of Treatment Not on file documented as of this encounter Visit Diagnoses Diagnosis Mixed hearing loss, unilateral- Primary documented in this encounter Care Teams Hvac Instructor Relationship Specialty Start Date End Date Freddy Mcdowell MD PCP - General 09/17/12 05/04/19 documented as of this encounter
--- OUTSIDE RECORDS SUMMARY | 2024-01-14 11:34 | XMS_ITS | Continuity of Care Document ---
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 Name Role Phone MELISSA ARDON Primary Care Physician Encounter [facility] NBR [id number] Date(s): 10/25/22 - 10/25/22 [facility] [address], [place] [address] Encounter Diagnosis Osteoarthritis of shoulders, bilateral(Discharge Diagnosis) - 10/25/22 Primary osteoarthritis, left shoulder(Discharge Diagnosis) - 10/25/22 Discharge Disposition: Home or Self Care Attending Physician: Jorge MARTIN, Mark Briggs Allergies, Adverse Reactions, Alerts No Known Allergies Functional Status 10/25/22 Other exposure to Infectious Disease Non e [...] Range]: 1 Peripheral Pulse Rate [60-100 bpm] 88 bp m (10/25/22 11:20 AM) Blood Pressure [90-140/60-90 mmHg] 140/8 0mmHg (10/25/22 11:20 AM) Weight 129.14 kg (10/25/22 11:20 AM) Weight Measured (lbs) 284.705 lb (10/25/22 11:20 AM) Height 180.33 cm (10/25/22 11:20 AM) Height/Length Measured (inches) 71 inch (10/25/22 11:20 AM) BSA Measured 2.54 m2 (10/25/22 11:20 AM) Body Mass Index 39.71 kg/m2 (10/25/22 11:20 AM) Social History Social History Type Response Tobacco Former tobacco user Tobacco Use:. QUIT 44 YEARS AGO per day. Sex Male Physician Outpatient Note * Jorge MARTIN, Mark R: PERFORM Event Display: Office Clinic Note Physician Authored Date: [id number] BLANCA MOORE :1950 Age:72 years Sex:Male Visit Date:10/25/2022 Primary Care Physician: MELISSA ARDON Chief Complaint BILATERAL SHOULDERS History of Present Illness New patient myself known to the practice seen today for bilateral shoulder pain and osteoarthritis right greater than left been present for the last several years.?? Has modified his working activities and feels as though his shoulders are improving??and he wants to get through the summer before considering any type of procedure. Review of Systems Constitutional:?No??fevers,?No??chills,?No??sweats Eye:?No??recent visual problems ENT:?No??ear pain,?No??nasal congestion,?No??sore throat Respiratory:?No??shortness of breath,?No??cough Cardiovascular:?No??Chest pain,?No??palpitations,?No??syncope Gastrointestinal:?Nonausea,?No??vomiting,?No??diarrhea Genitourinary:?No??hematuria Kodak/Lymph:?No??bruising tendency,?No??swollen lymph glands Endocrine:?No??excessive thirst,??No??excessive hunger Musculoskeletal:??No??back pain,??No??neck pain,??Positive for??joint pain,??No??muscle pain,??No??decreased range of motion Integumentary:?No??rash,?No??pruritus,?No??abrasions Neurologic: Alert & oriented X 4 Psychiatric:?No??anxiety,?No??depression Physical Exam Vitals & Measurements HR:??88??(Peripheral)?? BP:??140/80?? SpO2:??98%?? HT:??180.33??cm?? WT:??129.14??kg?? BMI:??39.71?? Pain Score:??5?? BSA:??2.54?? Well-nourished well-developed acute distress alert and oriented appearing stated age. ??Shoulder range of motion is limited to about 90 degrees of flexion bilaterally and cannot place his hands behind his head. ??Has good internal and external rotation more pain on the right than the left with someweakness in the rotator cuff. ??Has??normal elbow wrist hand range of motion normal cap refill distally no open wound signs of erythema infection.?? Review of x-rays bilateral glenohumeral joint arthritis worse on the right than left with rotator cuff??failure secondary to high riding humeral head??on the right some medialization of the glenoid but still appears to be plenty of bone stock to excepting the implant. Assessment/Plan 1.??Osteoarthritis of shoulders, bilateral??M19.011 Bilateral shoulder arthritis. ??Options watchful waiting therapy injection??or surgical invention for replacement. ??At this time he feels as though his modifications while working have been??effective??so he is good to continue doing so and if he decides he wishes to do anything more invasive I have him call us for follow-up. Primary osteoarthritis, left shoulder??M19.012 Problem List/Past Medical History Ongoing Derangement of [...] Use:. QUIT 44 YEARS AGO per day. Electronically Signed on 10/25/22 12:35 PM Mark Patel MD Patient Care team information Care Team Personnel Name: MELISSA ARDON Position: No Access Member Role: Primary Care Physician Address: Address: [address] [address]- Care Team Related Persons Name: GIULIANO CRAIN Address: Home [address] [id number] [facility]
--- OUTSIDE RECORDS SUMMARY | 2024-01-14 11:34 | XMS_ITS | Encounter Summary ---
Author Organization [facility] Address [facility] [place] [address] Care Team Providers Care Business Account Specialist Name Role Phone Timothy Mcdowell MD Primary Care Provider [phone] Reason for Visit * Reason Comments Cholesteatoma Encounter Details Date Type Department Care Team (Latest Contact Info) Description 09/17/2012 8:45 AM EDT Office Visit [place] [address] Antwan Collins MD [facility] [place] [address] Cholesteatoma (Primary Dx); Mixed conductive and sensorineural hearing loss Discharge Disposition: Home Social History Tobacco Use Types Packs/Day Years Used Date Smoking Tobacco: Former Cigarettes Q uit: 09/18/1979 Alcohol Use Standard Drinks/Week Comments Yes 1.7 (1 standard drink = 0.6 oz p ure alcohol) Sex and Gender Information Value Date Recorded Sex Assigned at Not on file Gender Identity Not on file Sexual Orientation Not on file documented as of this encounter Last Filed Vital Signs Vital Sign Reading [...] Mass Index 43.56 09/17/2012 8:45 AM EDT documented in this encounter Progress Notes * Antwan Collins MD - 09/17/2012 8:50 AM EDT Otolaryngology New Patient Consult Referring Provider: Koffi Lee Primary Care Provider: TIMOTHY MCDOWELL MD Otolaryngology Attending: Antwan Collins MD In the presence of Dr. Collins, I am recording the patients history of present illness. Bhavani AMOS History of Present Illness: Fito Croft is a 62 y.o. male seen today for cholesteatoma, right ear. He has been noticing a decrease in his right ear hearing, that interferes with some of his daily activities. He denies ear pain or drainage. He reports that he also has dry ears which he is using hydrocortisone cream in the ear for. Patient has history [place]mpan[place] [address] Aranda. He was recently seen by Dr. Lee for a welding spark in the left ear. also examined the right ear and noted a cholesteatoma and a CT scan was ordered.The Ct scan done on 08/24 indicated a cholesteatoma in the right ear. Review of Systems: The constitutional and ENT systems are thoroughly reviewed. Pertinent positives are recorded in theHPI, otherwise negative or noncontributory. PMH: Reviewed, no interval change Problem List: There are no active problems to display for this patient. Family History: Reviewed, pertinent positives listed in HPI, otherwise found to be noncontributory. Social History: Reviewed, pertinent positives listed in HPI, otherwise found to be noncontributory. Medications: Current outpatient prescriptions:atenolol (TENORMIN) 50 mg tablet, Take 50 mg by mouth daily., Disp: , Rfl: ; hydrochlorothiazide (HYDRODIURIL) 25 mg tablet, Take 25 mg by mouth daily., Disp: , Rfl: ; atenolol (TENORMIN) 25 mg tablet, Take 25 mg by mouth daily., Disp: , Rfl: Allergies: Review of patient's allergies indicates no known allergies. Physical Exam: Vital signs: Filed Vitals: 09/17/12 0845 BP: 168/98 Pulse: 85 Height: 180.3 cm (5' 11) Weight: 141.664 kg (312 lb 5 oz) Constitutional: Well developed, well nourished and well groomed. Communicates in a strong clear voice without stridor or hoarseness. Psychiatric: Responds appropriately to commands, alert, oriented. HENT: Ears: The ears are examined with operating microscope. The pinnas are well formed without lesions or masses. On the right, the tympanic membrane is diffusely involved with purulent and keratin debris. There is a defect anteriorly through which cholesteatoma can be seen in the middle ear space as well as granulation tissue. There is also a large osteoma along the posterior canal wall. The left tympanic membrane is translucent, normally mobile, no erythema. Face: Normal facies without scar or asymmetry. Nose: No evidence of mucopurulent drainage, mucosal lesions or polyps, septum midline. Oral Cavity: Tongue and palate with good mobility, no visible lesions or asymmetry. Neck: No masses or adenopathy, trachea midline, normal laryngeal crepitus preserved. Thyroid normalto palpation. Cutaneous: No suspicious lesions or rashes of the facial skin. The following studies have been personally reviewed and summarized: Audiogram: Moderate to severe mixed hearing loss on the right. Normal hearing thresholds on the left CT of temporal bones: Soft tissue occupying the middle ear and attic with extension into the mastoid. Questionable lateral semicircular canal fistula Assessment/Recommendations: Fito Croft is a 62 y.o. male with a large cholesteatoma on the right side. He is status post multiple surgical procedures in the past. The cholesteatoma appears to be involving the middle ear with extension into the attic region, most likely also into the mastoid. He is a candidate for a tympanomastoidectomy. The risks of tympanoplasty with mastoidectomy with or without ossicular reconstruction were discussed in detail with the patient. The patient affirms complete understanding of these risks including complete hearing loss in the operated ear, prolonged dizziness, facial paralysis, taste disturbance and spinal fluid leak. The ultimate expected benefits to the patient including establishing a clean, dry ear and improved hearing were also discussed. The likelihood that this will be done as a staged procedure, that is, followed by a second look operation and ossicular reconstruction in 4 to 6 months was explained. Alternatives including doing nothing and the risks of doing nothing were explained in detail. The patient realizes that if no surgical treatment is considered that I will happily continue to provide medical care. Will be scheduled as an outpatient at the next opportunity I performed the above scribed service and agree with the accuracy of the note documented in this encounter Plan of Treatment Not on file documented as of this encounter Visit Diagnoses Diagnosis Cholesteatoma- Primary Cholesteatoma, unspecified Mixed conductive and sensorineural hearing loss Mixed hearing loss, unspecified documented in this encounter Care Teams Business Account Specialist Relationship Specialty Start Date End Date Timothy Mcdowell MD PCP - General 09/17/12 05/04/19 documented as of this encounter
--- OUTSIDE RECORDS SUMMARY | 2024-01-14 11:34 | XMS_ITS | Referral Summary ---
Author Organization [facility] Address [address] [place] [address] Care Team Providers Care Vault Custodian Name Role Phone Unavailable Primary Care Provider Unavailabl e Social History Tobacco Use Types Packs/Day Years Used Date Smoking Tobacco: Never Assessed Interpersonal Safety Answer Date Record ed Physically Hurt Never 03/28/2020 Verbally Threaten Not on file 03/28/2020 Sex and Gender Information Value Date Recorded Sex Assigned at Not on file Gender Identity Not on file Sexual Orientation Not on file Plan of Treatment Not on file
--- OUTSIDE RECORDS SUMMARY | 2024-01-14 11:34 | XMS_ITS | Clinical Summary ---
Author Organization [facility] Address [address] [place] [address] Care Team Providers Care Media Analytics Manager Name Role Phone Unavailable Primary Care Provider [...] Orientation Not on file Plan of Treatment Health Maintenance Due Date Last Done Comments Hepatitis C Screen 1950 RSV Immunization ( o r 60+ Years) (1 - 1-dose 60+ series) 2012 Fall Risk Screening 2017 COVID-19 Vaccine ( season) 2023
--- OUTSIDE RECORDS SUMMARY | 2024-01-14 11:34 | XMS_ITS | Continuity of Care Document ---
Author Organization [facility] Address [address] [place] [address] Care Team Providers Care Hr Business Partner Name Role Phone Tk Philiplina Jha Primary Care Physician Encounter [facility] NBR [id number] Date(s): 07/09/22 - 07/09/22 [facility] [address], [place] [address] Encounter Diagnosis Post-traumatic osteoarthritis of right knee(Discharge Diagnosis) - 07/09/22 Discharge Disposition: Home or Self Care Attending Physician: Enmanuel Eugene MD Allergies, Adverse Reactions, Alerts No Known Allergies Functional Status 07/09/22 Other exposure to Infectious Disease Non e [...] 0 Refill(s) Start Date: 05/22/22 Status: Ordered hydroCHLOROthiazide 25 mg oral tablet [...] Effective Dates Status H ealth Status Informant Derangement of medial meniscus Confirmed Active Post-traumatic osteoarthritis of right knee Confirmed Active Osteoarthritis of knee Confirmed Active Sprain of medial collateral ligament of knee Confirmed Active Vital Signs Most recent to oldest [Reference Range]: 1 Peripheral Pulse Rate [60-100 bpm] 84 bp m (07/09/22 11:41 AM) Blood Pressure [90-140/60-90 mmHg] 140/8 5mmHg (07/09/22 11:41 AM) Weight 123.38 kg (07/09/22 11:41 AM) Weight Measured (lbs) 272.006 lb (07/09/22 11:41 AM) Height 180.33 cm (07/09/22 11:41 AM) Height/Length Measured (inches) 71 inch (07/09/22 11:41 AM) BSA Measured 2.49 m2 (07/09/22 11:41 AM) Body Mass Index 37.94 kg/m2 (07/09/22 11:41 AM) Social History Social History Type Response Tobacco Former tobacco user Tobacco Use:. QUIT 44 YEARS AGO per day. Sex Hospital Discharge Instructions Follow Up Care 05/23/2022 10:05:01 With:Patient to call as needed Address: When: Unknown Physician Outpatient Note * Enmanuel Eugene MD: PERFORM Event Display: Office Clinic Note Physician Authored Date: [id number] BLNACA MOORE :1950 Age:72 years Sex:Male Visit Date:07/09/2022 Primary Care Physician: Will Philip Chief Complaint WC RIGHT KNEE F\U History of Present Illness The patient presents for follow-up of his right knee status post viscosupplementation with Monovisherminio Whitmore PA-C on 05/23/2022. ??The patient states that he found the injection to be tremendously helpful.?? He states that his knee went from 9 out of 10 pain to 3 or 4 at its worst. ??He has been using??his brace. 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 He denies swelling, fevers, chills, locking, catching, instability, or limping. ??He denies numbness or tingling. ??His knee has not been waking him at night.?? He has been taking ibuprofen, but this is to address his shoulders and not his knee. Review of Systems Review of systems is significant for??bilateral shoulder and??right knee pain Physical Exam Vitals & Measurements HR:??84??(Peripheral)?? BP:??140/85?? SpO2:??99%?? HT:??180.33??cm?? WT:??123.38??kg?? BMI:??37.94?? Pain Score:??4?? BSA:??2.49?? The patient's??right??lower extremity is neurovascularly intact. ??Sensation and motor exam are intact distally. ??All digits are warm and pink.?? No swelling or effusion is present. ??His injection site is well-healed. ??Range of motion is full and painless.?? The knee was found to be stable to anterior, posterior, varus, and valgus stress.?? He demonstrates mild medial and patellofemoral tenderness to palpation. ??The lateral compartment is nontender. Assessment/Plan 1.??Post-traumatic osteoarthritis of right knee??M17.31 The patient appears to be doing very well status post??Monovisc injection. ??He will continue to work at full duty.?? He is encouraged to continue with??home exercise. ??He is having issues with his knee brace??falling??and we will have Bob Wade??take a look at this.?? The patient verbalized understanding all questions were answered.?? He will contact us regarding further appointment as necessary. Follow Up Instructions With When Contact Information Patient to call as needed Additional Instructions: Problem List/Past Medical History Ongoing Derangement of medial meniscus Osteoarthritis of knee Post-traumatic osteoarthritis of right knee Sprain of medial collateral ligament of knee Historical No qualifying data Medications atenolol 25 mg oral tablet atenolol 50 mg oral tablet cyclobenzaprine 10 mg oral tablet hydroCHLOROthiazide 25 mg oral tablet ibuprofen 200 [...] YEARS AGO per day. Electronically Signed on 07/09/22 12:15 PM Enmanuel Eugene MD Patient Care team information Care Team Personnel Name: Will Philip Position: No Access Member Role: Primary Care Physician Address: Address: [address] [place] [id number] [place] [address]
--- OUTSIDE RECORDS SUMMARY | 2024-01-14 11:34 | XMS_ITS | Encounter Summary ---
Author Organization [facility] Address [address] [place] [address] Care Team Providers Care Test Rack Operator Name Role Phone Unavailable Primary Care Provider Unavailabl e Encounter Details Date Type Department Care Team (Late st Contact Info) Description 12/18/2021 Lab Requisition [facility] Pathology & Laboratory Medicine - [facility] [address] [place] [address] Outr Resulting Lab, Provider Social History Tobacco Use Types Packs/Day Years [...] Procedure Name Priority Date/Time Associated Diagnosis Comments PSA TOTAL, DIAGNOSTIC Routine 12/18/2021 8:30 EDT documented in this encounter Results * PSA TOTAL, DIAGNOSTIC (12/18/2021 8:30 EDT) PSA 2.7 <=4.5 ng/mL 12/18/2021 22:30 EDT [facility] Blood VENOUS BLOOD / Unknown 12/18/2021 8:30 EDT 12/18/2021 21:12 EDT Narrative [facility] - 12/18/2021 22:30 EDT NOTE: Serum PSA concentration should not be interpreted as absolute evidence for the presence or absence of malignant disease. Assayed on Siemens ADVIA Centaur XPT using chemiluminescent technology.??Values obtained by using different assay methods cannot be used interchangeably. Provider Outr Resulting Lab CHEMISTRY & BLOOD GAS ORDERABLES Performing Organization Address [facility]/State/ZIP Co de Phone Number [facility] [address] [place] [address] documented in this encounter Visit Diagnoses Not on filedocumented in this encounter
--- OUTSIDE RECORDS SUMMARY | 2024-01-14 11:34 | XMS_ITS | Continuity of Care Document ---
Author Organization [facility] Address [address] [place] [address] Care Team Providers Care Mobile Lounge Driver Or Operator Name Role Phone Tk Philiplina Jha Primary Care Physician Encounter [facility] NBR [id number] Date(s): 05/23/22 - 05/23/22 [facility] [address] [place], [place] [address] Encounter Diagnosis Post-traumatic osteoarthritis of right knee(Discharge Diagnosis) - 05/23/22 Discharge Disposition: Home or Self Care Attending Physician: SETFANY Brown Allergies, Adverse Reactions, Alerts No Known Allergies Assessment and Plan Future Appointments Functional Status 05/23/22 Other exposure to Infectious Disease Non e [...] Range]: 1 Peripheral Pulse Rate [60-100 bpm] 40 bp m *LOW* (05/23/22 9:22 AM) Blood Pressure [90-140/60-90 mmHg] 138/8 8mmHg (05/23/22 9:22 AM) Weight 127.01 kg (05/23/22 9:22 AM) Weight Measured (lbs) 280.009 lb (05/23/22 9:22 AM) Height 180.34 cm (05/23/22 9:22 AM) Height/Length Measured (inches) 71 inch (05/23/22 9:22 AM) BSA Measured 2.52 m2 (05/23/22 9:22 AM) Body Mass Index 39.05 kg/m2 (05/23/22 9:22 AM) Social History Social History Type Response Tobacco Former tobacco user Tobacco Use:. QUIT 44 YEARS AGO per day. Sex Physician Outpatient Note * STEFANY Brown: PERFORM Event Display: Office Clinic Note Physician Authored Date: [id number] BLANCA MOORE :1950 Age:72 years Sex:Male Visit Date:05/23/2022 Primary Care Physician: Will Philip Chief Complaint RIGHT KNEE PAIN History of Present Illness The patient comes in today with right knee pain. 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 He has been managed very well with??Advil, Tylenol,??ice, activity modifications,??bracing, and periodic viscosupplementation's.?? Unfortunately he is unable to retire yet. ??He states that viscosupplementation helps get him through whenhis knee starts to ache and stiffen up.?? He is not quite ready to undergo a knee replacement.?? His??knee brace is in disrepair and he would like to??be prescribed a new one. Physical Exam Vitals & Measurements HR:??40??(Peripheral)?? BP:??138/88?? SpO2:??98%?? HT:??180.34??cm?? WT:??127.01??kg?? BMI:??39.05?? Pain Score:??7?? BSA:??2.52?? General: Alert and oriented x3, pleasant cooperative, in no acute distress, appears to be their stated age, is generally fit appearing.? Right knee: Significant crepitance with knee extension. ??Mild effusion posteriorly. ??Stable anteriorly and posteriorly. ??Medial lateral joint line tenderness.?? Negative varus and valgus stresstesting. ??Painful Waldo's.?? Skin distally is pink warm and dry. ??Full range of motion with terminal ends of flexion being painful posteriorly. Assessment/Plan 1.??Post-traumatic osteoarthritis of right knee??M17.31 The patient presents today with posttraumatic right knee osteoarthritis.?? As he has been treated well with bracing in the past, I believe a crossover brace will help him.?? In addition he will continue with Advil and Tylenol along with ice as needed. ??We did discuss another??viscosupplementation injection which has given him longstanding relief in the past. ??We did discuss needing a knee replacement in the future but he would like to hold off. ?? Once consent was obtained, and the correct knee was identified, I prepped the inferolateral aspect of the right??knee with 3 swabs of iodine. I then injected under sterile technique 1 ampule of Monovisc and 40 mg of Kenalog. I then cleansed the area with alcohol and placed a sterile bandage. Problem List/Past Medical History Ongoing Derangement of [...] per day. Diagnostic Results Diagnostic Study Interpretation: X-rays taken today at the office of his right knee standing show 4 views. ??There is??complete lossof his medial joint space,??moderate loss of his patellofemoral compartment??joint space. ??There is tricompartmental peripheral spurring.?? Images reviewed and interpreted by myself at today's visit. ??The reason for the x-ray today was right knee pain. Electronically Signed on 05/23/22 01:18 PM STEFANY Brown Patient Care team information Personnel Name: Will Philip Address: Address: [address] [place] [id number] [place] [address]
--- OUTSIDE RECORDS SUMMARY | 2024-01-14 11:34 | XMS_ITS | Encounter Summary ---
Author Organization [facility] Address [facility] [place] [address] Care Team Providers Care Visual Merchandiser Name Role Phone Freddy Mcdowell MD Primary Care Provider [phone] Encounter Details Date Type Department Care Team (Late st Contact Info) Description 08/24/2012 Orders [place] [address] Antwan Collins MD [facility] [place] [address] Social History Tobacco Use Types Packs/Day Years Used Date Smoking Tobacco: Never Assessed Sex and Gender Information Value Date Recorded Sex Assigned at Not on file Gender Identity Not on file Sexual Orientation Not on file documented as of this encounter Plan of Treatment Not on file documented as of this encounter Procedures Procedure Name Priority Date/Time Associated Diagnosis Comments FILM LIBRARY STORAGE ONLY CT HEAD Routine 08/24/2012 2:40 PM EDT documented in this encounter Results * Film Library- Storage only CT Head (08/24/2012 2:40 PM EDT) 08/24/2012 2:40 PM EDT Narrative [facility] - 12/27/2013 11:03 PM EDT This is a non-reportable exam. Procedure Note Fracisco Ratliff - 12/27/2013 This is a non-reportable exam. Antwan Collins MD IMG FILM LIBRARY OR DERABLES RAD [address] [place] [address] documented in this encounter Visit Diagnoses Not on filedocumented in this encounter Care Teams Visual Merchandiser Relationship Specialty Start Date End Date Freddy Mcdowell MD PCP - General 09/17/12 05/04/19 documented as of this encounter
--- OUTSIDE RECORDS SUMMARY | 2024-01-14 11:34 | XMS_ITS | Continuity of Care Document ---
Author Organization [facility] Address [address] [place] [address] Care Team Providers Care Speech Communication Professor Name Role Phone CedrickWill frances Primary Care Physician [phone] Encounter [facility] FIN NBR [id number] Date(s): 05/23/22 - 05/23/22 [facility] [address] [place] [address]- Discharge Disposition: Home or Self Care Attending Physician: STEFANY Brown Admitting Physician: STEFANY Brown Allergies, Adverse Reactions, Alerts No Known Allergies Assessment and Plan Future Appointments Medications atenolol 25 mg oral tablet 1 [...] medial collateral ligament of knee Confirmed Active Results Radiology Reports * Exam Date Time Procedure Performing Provider Status 05/23/22 9:51 AM XR Knee Complete 4+ Views Right Ministerio Dejesus; Jerad (Verified) Notes: (XR Knee Complete 4+ Views Right) Reason For Exam: Right knee pain XR Knee Complete 4+ Views Right EXAM DESCRIPTION: XR Knee Complete 4+ Views Right 05/23/2022 INDICATION: RIGHT KNEE PAIN COMPARISON: 09/10/2018 IMPRESSION: No acute fracture or dislocation Medial femorotibial compartment joint space narrowing with tricompartment osteophyte formation consistent with osteoarthritic changes as seen previously No focal lytic or sclerotic lesion. JOB #: [id number] Final Signed by: Mark Root MD Signed (Electronic Signature): 05/23/2022 9:54 am Social History Social History Type Response Tobacco Former tobacco user Tobacco Use:. QUIT 44 YEARS AGO per day. Sex XR Knee - right GE 4 Views * Mark Root MD: VERIFY, VERIFY Event Display: Report EXAM DESCRIPTION: XR Knee Complete 4+ Views Right 05/23/2022 INDICATION: RIGHT KNEE PAIN COMPARISON: 09/10/2018 IMPRESSION: No acute fracture or dislocation Medial femorotibial compartment joint space narrowing with tricompartment osteophyte formation consistent with osteoarthritic changes as seen previously No focal lytic or sclerotic lesion. JOB #: [id number] Final Signed by: Mark Root MD Signed (Electronic Signature): 05/23/2022 9:54 am Patient Care team information Personnel Name: Will Philip Address: Address: [address] [place] [address] [place]
--- OUTSIDE RECORDS SUMMARY | 2024-01-14 11:34 | XMS_ITS | Continuity of Care Document ---
Author Organization [facility] Address [address] [place] [address] Care Team Providers Care Cocktail Waitress Name Role Phone MELISSA ARDON Domi Primary Care Physician Encounter [facility] FIN NBR [id number] Date(s): 09/24/22 - 09/24/22 [facility] [address] [place] [address]- Encounter Diagnosis Pain in left shoulder(Discharge Diagnosis) - 09/24/22 Discharge Disposition: Home or Self Care Attending Physician: Enmanuel Eugene MD Admitting Physician: Enmanuel Eugene MD Allergies, Adverse Reactions, Alerts No Known Allergies Medications atenolol 25 mg oral tablet 1 [...] Exam Date Time Procedure Performing Provider Status 09/24/22 8:24 AM XR Shoulder Complete 2+ Views Left Ministerio Dejesus; Auth (Verified) Notes: (XR Shoulder Complete 2+ Views Left) Reason For Exam: Bilateral shoulder pain XR Shoulder Complete 2+ Views Left EXAM DESCRIPTION: XR Shoulder Complete 2+ Views Left 09/24/2022 INDICATION: BILATERAL SHOULDER PAIN COMPARISON: None IMPRESSION: No acute fracture or dislocation Glenohumeral joint osteoarthritic changes with joint space narrowing and prominent humeral head osteophyte formation with mild glenoid osteophyte formation. Mild AC joint arthritic changes No focal lytic or sclerotic lesion. JOB #: [id number] Final Signed by: Mark Root MD Signed (Electronic Signature): 09/24/2022 8:36 am * Exam Date Time Procedure Performing Provider Status 09/24/22 8:24 AM XR Shoulder Complete 2+ Views Right Ministerio Dejesus; Auth (Verified) Notes: (XR Shoulder Complete 2+ Views Right) Reason For Exam: Bilateral shoulder pain XR Shoulder Complete 2+ Views Right EXAM DESCRIPTION: XR Shoulder Complete 2+ Views Right 09/24/2022 INDICATION: BILATERAL SHOULDER PAIN COMPARISON: 01/19/2020 IMPRESSION: No acute fracture or dislocation. Severe glenohumeral joint osteoarthritic changes with joint space narrowing and prominent humeral head osteophyte formation. AC joint osteoarthritic changes with joint space narrowing and mild osteophyte formation No focal lytic or sclerotic lesion. JOB #: [id number] Final Signed by: Mark Root MD Signed (Electronic Signature): 09/24/2022 8:35 am Social History Social History Type Response Tobacco Former tobacco user Tobacco Use:. QUIT 44 YEARS AGO per day. Sex Male XR Shoulder - right GE 2 Views * Mark Root MD: VERIFY, VERIFY Event Display: Report EXAM DESCRIPTION: XR Shoulder Complete 2+ Views Right 09/24/2022 INDICATION: BILATERAL SHOULDER PAIN COMPARISON: 01/19/2020 IMPRESSION: No acute fracture or dislocation. Severe glenohumeral joint osteoarthritic changes with joint space narrowing and prominent humeral head osteophyte formation. AC joint osteoarthritic changes with joint space narrowing and mild osteophyte formation No focal lytic or sclerotic lesion. JOB #: [id number] Final Signed by: Mark Root MD Signed (Electronic Signature): 09/24/2022 8:35 am XR Shoulder - left GE 2 Views * Mark Root MD: VERIFY, VERIFY Event Display: Report EXAM DESCRIPTION: XR Shoulder Complete 2+ Views Left 09/24/2022 INDICATION: BILATERAL SHOULDER PAIN COMPARISON: None IMPRESSION: No acute fracture or dislocation Glenohumeral joint osteoarthritic changes with joint space narrowing and prominent humeral head osteophyte formation with mild glenoid osteophyte formation. Mild AC joint arthritic changes No focal lytic or sclerotic lesion. JOB #: [id number] Final Signed by: Mark Root MD Signed (Electronic Signature): 09/24/2022 8:36 am Patient Care team information Care Team Personnel Name: MELISSA ARDON Position: No Access Member Role: Primary Care Physician Address: Address: [address] [address]- [place]
--- OUTSIDE RECORDS SUMMARY | 2024-01-14 11:34 | XMS_ITS | Encounter Summary ---
Author Organization [facility] Address [address] [place] [address] Care Team Providers Care Wire Border Assembler Name Role Phone Unavailable Primary Care Provider Unavailabl e Encounter Details Date Type Department Care Team (Late st Contact Info) Description 12/24/2019 Lab Requisition [facility] Pathology & Laboratory Medicine - [facility] [address] [place] [address] Outr Resulting Lab, Provider Social History Tobacco [...] Associated Diagnosis Comments PSA TOTAL, DIAGNOSTIC Routine 12/23/2019 10:05 EDT documented in this encounter Results * PSA TOTAL, DIAGNOSTIC (12/23/2019 10:05 EDT) PSA 2.1 0.0 - 4.5 ng/mL 12/27/2019 8:37 EDT [facility] Blood VENOUS BLOOD / Unknown 12/23/2019 10:05 EDT 12/24/2019 16:06 EDT Narrative [facility] - 12/27/2019 8:37 EDT NOTE: Serum PSA concentration should not be interpreted as absolute evidence for the presence or absence of malignant disease. Assayed on Siemens ADVIA Centaur XPT using chemiluminescent technology.??Values obtained by using different assay methods cannot be used interchangeably. Provider Outr Resulting Lab CHEMISTRY & BLOOD GAS ORDERABLES [facility] [address] [place] [address] documented in this encounter Visit Diagnoses Not on filedocumented in this encounter
--- OUTSIDE RECORDS SUMMARY | 2024-01-14 11:34 | XMS_ITS | Continuity of Care Document ---
Author Organization [facility] Address [address] [place] [address] Care Team Providers Care Shingle Cutter Name Role Phone MELISSA ARDON Domi Primary Care Physician [phone] Encounter [facility] NBR [id number] Date(s): 08/27/22 - 08/27/22 [facility] [address] [place], [place] [address] Allergies, Adverse Reactions, Alerts No Known Allergies [...] medial collateral ligament of knee Confirmed Active Social History Social History Type Response Tobacco Former tobacco user Tobacco Use:. QUIT 44 YEARS AGO per day. Sex Male Patient Care team information Care Team Personnel Name: MELISSA ARDON Position: No Access Member Role: Primary Care Physician Address: Address: [id number] [place] [address]
[2024-01-14 14:40] LABS: Abs Immature Grans 0.01 10^3/uL (0.0-0.06); Absolute Basophil Count 0.08 10^3/uL (0.0-0.2); Absolute Eosinophil Count 0.24 10^3/uL (0.0-0.7); Absolute Lymphocyte Count 0.93 10^3/uL (1.2-3.4); Absolute Monocyte Count 0.43 10^3/uL (0.1-0.8); Absolute Neutrophil Count 4.62 10^3/uL (1.2-6.7); Basophils % 1.3 %; Eosinophils % 3.8 %; HCT 45.5 % (40.0-50.0); HGB 15.5 g/dL (13.5-17.5); Immature Grans % 0.2 %; Lymphocytes % 14.7 %; MCH 29.9 pg (27.0-33.0); MCHC 34.1 % (32.0-36.0); MCV 88 fL (80-95); MPV 10.6 fL (8.0-11.0); Monocytes % 6.8 %; Neutrophils % 73.2 %; Platelet Count 179 10^3/uL (130-400); RBC 5.18 10^6/uL (4.36-5.78); RDW 13.8 % (11.8-14.1); RDW-SD 44.5 fL; WBC 6.31 10^3/uL (4.4-10.8)
[2024-01-14 15:10] LABS: ALT 30 U/L (16-63); AST 20 U/L (15-37); Alkaline Phosphatase 67 U/L (46-116); Anion Gap 9.5 mmol/L (3-11); BUN 24 mg/dL (7-18); Bilirubin, Total 0.74 mg/dL (0.2-1.0); CO2 28.5 mmol/L (21.0-32.0); CREATININE 1.4 mg/dL (0.70-1.30); Chloride 104 mmol/L (98-107); Estimated GFR 53.74 (mL/min/1.73m2); Folate 7.4 ng/mL (8.6-20.0); Glucose 109 mg/dL (74-106); Potassium 3.9 mmol/L (3.5-5.1); Sodium 142 mmol/L (136-145); TSH (W/Ref FT4) 1.25 uIU/mL (0.36-3.74); Total Protein 6.8 g/dL (6.4-8.2)
[2024-01-14 16:03] LABS: Vitamin B12 437 pg/mL (193-986)
[2024-01-14 22:36] LABS: PSA, Screening 2.4 ng/mL (<=6.5)
== END 2024-01-14 11:23 | disposition home or self-care (01) ==
LOC: NCHCN 11:22
PROVIDERS: PCP Nurse Practitioner Family; Visit Provider Family Medicine
DX: R41.3 Other amnesia (principal); R79.89 Other specified abnormal findings of blood chemistry; Z12.5 Encounter for screening for malignant neoplasm of prostate
CPT/HCPCS: 80053; 84153; 82607; 82746; 84443; 85025

== ENCOUNTER 2024-09-14 02:06 | Outpatient (CLI) | payer MEDICARE, BC, SELFPAY ==
--- NOTE | 2024-09-14 10:00 | DI.MRI_ITS ---
Exam(s) MR LUMBAR SPINE WO EXAM: MR LUMBAR SPINE WO CLINICAL HISTORY: pain,spinal stenosis,m48.062. TECHNIQUE: Multiplanar multisequence MRI of the Lumbar spine was performed. COMPARISON: CR XR LUMBAR SPINE 2 OR 3 VIEW from 08/01/2024 FINDINGS: Bones: The last intervertebral disc space is designated the L5/S1 level for the numbering purpose of this examination. There are Schmorl nodes seen at the inferior endplate of L4 and the superior endp late of L5. There is also Schmorl nodes seen at the inferior endplate of L1. Alignment is satisfacto ry. There are endplate degenerative signal changes at multiple levels of the lumbar spine. Cord: The conus tip ends at the T12 level. There are irregular linear areas seen anterior to the sp inal cord at the L1 level and heterogeneity of the spinal cord roots posterior to L2. The possibility of a vascular malformation should be considered in this region. No solid discrete mass is present. T12-L1: No disc herniations or bulges are present. No central spinal canal or neural foraminal stenos is. L1-2: There is a diffuse disc bulge. The findings result in moderate narrowing of the central spinal canal. There is mild bilateral neural foraminal stenosis. L2-3: There are prominent osteophytes posteriorly and a diffuse disc bulge. Degenerative changes of the facets are seen. The findings do result in moderate narrowing of the central spinal canal. Ther e is moderate bilateral neural foraminal stenosis. L3-4: There is prominence of the posterior osteophytes and mild diffuse disc bulge. There are degene rative changes of the facets. The findings result in moderately severe central spinal canal stenosis . There is moderate bilateral neural foraminal stenosis, left greater than right. L4-5: There is a diffuse disc bulge. There are hypertrophic changes of the facets and ligamentum fla vum. The findings result in moderately severe central spinal canal stenosis. There is moderate bila teral neural foraminal stenosis, right greater than left. L5-S1: No disc herniations or bulges are present. There are degenerative changes seen at the facets a t this level. No significant central spinal canal or neural foraminal stenosis is present. Soft tissues: The visualized SI joints and sacrum are well maintained. The paraspinal soft tissues ar e unremarkable. IMPRESSION: 1. Multilevel degenerative changes in the lumbar spine resulting in central spinal canal or neural fo raminal stenosis. Please see the above levels for complete details. 2. Abnormal appearance around the distal spinal cord and filum. Vascular malformation should be cons idered. Postcontrast MRI of the lumbar spine may be considered for further evaluation. DATA REPOSITORY:
== END 2024-09-14 02:26 ==
LOC: DI 02:06
PROVIDERS: PCP Family Medicine; Visit Provider Anesthesiology Pain Medicine
DX: M48.062 Spinal stenosis, lumbar region with neurogenic claudication (principal)
CPT/HCPCS: 72148

== ENCOUNTER 2024-09-21 18:43 | Outpatient (REF) | payer MEDICARE, BC, SELFPAY ==
[2024-09-21 21:12] LABS: Abs Immature Grans 0.03 10^3/uL (0.0-0.06); Absolute Basophil Count 0.08 10^3/uL (0.0-0.2); Absolute Eosinophil Count 0.12 10^3/uL (0.0-0.7); Absolute Lymphocyte Count 1.27 10^3/uL (1.2-3.4); Absolute Monocyte Count 0.61 10^3/uL (0.1-0.8); Absolute Neutrophil Count 5.32 10^3/uL (1.2-6.7); Basophils % 1.1 %; Eosinophils % 1.6 %; HCT 46.6 % (40.0-50.0); HGB 16.1 g/dL (13.5-17.5); Immature Grans % 0.4 %; Lymphocytes % 17.1 %; MCH 29.7 pg (27.0-33.0); MCHC 34.5 % (32.0-36.0); MCV 86 fL (80-95); MPV 10.5 fL (8.0-11.0); Monocytes % 8.2 %; Neutrophils % 71.6 %; Platelet Count 203 10^3/uL (130-400); RBC 5.43 10^6/uL (4.36-5.78); RDW 14.6 % (11.8-14.1); RDW-SD 45.9 fL; WBC 7.43 10^3/uL (4.4-10.8)
[2024-09-21 21:27] LABS: Hemoglobin A1C 5.7 % (<5.7)
[2024-09-21 21:30] LABS: ALT 32 U/L (16-63); AST 31 U/L (15-37); Albumin 4.2 g/dL (3.4-5.0); Alkaline Phosphatase 84 U/L (46-116); Anion Gap 5.7 mmol/L (3-11); BUN 25 mg/dL (7-18); Bilirubin, Total 1.1 mg/dL (0.2-1.0); CO2 32.3 mmol/L (21.0-32.0); CREATININE 1.3 mg/dL (0.70-1.30); Calcium 9.6 mg/dL (8.5-10.1); Calculated LDL 122 mg/dL (<100); Chloride 104 mmol/L (98-107); Cholesterol 179 mg/dL (<200); Estimated GFR 58.37 (mL/min/1.73m2); Glucose 98 mg/dL (74-106); HDL Cholesterol 45 mg/dL (>or=40); Potassium 3.7 mmol/L (3.5-5.1); Sodium 142 mmol/L (136-145); Triglyceride 60 mg/dL (<150)
== END 2024-09-21 18:44 | disposition home or self-care (01) ==
LOC: NCHCN 18:43
PROVIDERS: PCP Family Medicine; Visit Provider Family Medicine
DX: I10 Essential (primary) hypertension (principal); R73.03 Prediabetes
CPT/HCPCS: 80053; 80061; 83036; 85025

== ENCOUNTER 2024-10-06 09:47 | Outpatient (CLI) | payer MEDICARE, BC, SELFPAY ==
[2024-10-06] VITALS (7 sets, daily range): BP systolic 175–209; BP diastolic 80–159; PULSE 67–84; RESP 19–24; TEMP 36.6; O2SAT 96–98
--- NOTE | 2024-10-06 10:20 | PDOC.PAIN ---
Date of service: 10/06/24 Time of Service: 10:20 Pain Managment Procedure Note Procedure Note Procedure Note: PROCEDURE NOTE LUMBAR EPIDURAL STEROID INJECTION Date of Service: October 06, 2024 Patient:Fito Verdin? Provider: Freddy Sierra DO, MPH Fito Croft has been referred to the [facility] for a lumbar epidural steroid injection. Pre-operative diagnosis: Lumbosacral Radiculopathy ICD-10 M54.16 Post-operative diagnosis: Same Pre-Procedure Pain: VAS= 7 /10 Comments: He was previously seen by Dr. Marcano in our clinic and this procedure was recommended. No changes since this visit with Dr. Marcano. Fito was interviewed and the medical record was reviewed.? There were no medical, pharmacologic, radiographic or other structural contraindications to attempting fluoroscopically guided Lumbar epidural steroid injection.? Risks, potential side effects, indications, and potential benefits of the procedure were reviewed with Fito.? Questions and concerns were addressed.? After it was clear that Fito was fully informed about the procedure, the printed consent form was signed by the patient and myself.? Fito was placed in the prone position on the fluoroscopy table and automated blood pressure cuff and pulse oximeter applied. The skin entry point for entering/approaching the epidural space for the lumbar epidural steroid injection was marked. Following thorough chlorhexadine preparation of the skin and draping and 1% lidocaine infiltration of the skin entry point and subcutaneous tissues, an 18 gauge Touhy needle was placed and advanced under fluoroscopic guidance and with loss of resistance technique into the L5-S1 epidural space. Needle tip placement and depth were aided and confirmed by fluoroscopy. There was no paresthesia or return of blood or CSF through the needle. 1 mls of Omnipaque 240 was injected with clear epidural spread confirmed with fluoroscopy. 80 mg of Depo-Medrol was? injected. This was followed by 1 ml of preservative-free normal saline to flush the steroid out of the needle. There was no unusual discomfort expressed by Fito. The needle was withdrawn without difficulty. (49 mls of Omnipaque was wasted) Fito was observed and was without hemodynamic, neurologic, or allergic reactions.? Fluoroscopic images were digitally archived. Fito's vital signs were stable throughout the procedure and were as recorded in nursing records. Follow up plans and appointments were discussed with Fito. Post procedure instruction was given as documented in nursing records and having met discharge criteria Fito was discharged from the [facility] Management [facility]. COMMENTS: No apparent complications. Post-procedure pain: VAS= 2/10. Fito to contact [facility] as needed. If at least 50% improvement in pain and/or function for at least 3 months is achieved, this procedure can be repeated. I personally performed this entire procedure. FREDDY SIERRA DO, MPH ABPMR-subspecialty board certification in Pain Medicine [facility] Coding Conscious Sedation used for procedure: No CPT Codes: Inj Spine L/S w/Imaging - 03315 ([id number] ~G) Additional Codes: Date of Service (80226) Date of service: 10/06/24
--- NOTE | 2024-10-06 10:43 | DI.RAD_ITS ---
Exam(s) XR PAIN CLINIC LUMBAR SP 2V EXAM: XR PAIN CLINIC LUMBAR SP 2V CLINICAL HISTORY: Dx: Lumbar Radiculopathy TECHNIQUE: 2D and realtime digital imaging was performed. CONTRAST MATERIAL: Refer to procedure report. COMPARISON: No exams were available for comparison FINDINGS: Fluoroscopy was provided for Dr. Perez during the performance of a lumbar epidural steroid injection. Please refer to the procedure report for complete details. Ka,r=14.1 mGy IMPRESSION: RADIATION DOSE DELIVERED: 0.0 0.0 0
[2024-10-06] MEDS: Omnipaque 240 MG/ML 50 ML BTL IJ (10:51)
[2024-10-06] MEDS: Epidural Tray 1 EACH MC (10:52)
[2024-10-06] MEDS: methylPREDNISolone ACETATE 80 MG/ML VIAL IJ (10:52)
== END 2024-10-06 09:48 | disposition home or self-care (01) ==
LOC: PC 09:47
PROVIDERS: PCP Family Medicine; Visit Provider Preventive Medicine Occupational Medicine
DX: M54.16 Radiculopathy, lumbar region (principal); M54.50 Low back pain, unspecified
CPT/HCPCS: 62323; 72100; J1010; Q9967

== ENCOUNTER 2025-02-02 08:46 | Outpatient (CLI) | payer MEDICARE, BC, SELFPAY ==
--- NOTE | 2025-02-02 06:00 | DI.RAD_ITS ---
Exam(s) XR PAIN CLINIC LUMBAR SP 2V EXAM: XR PAIN CLINIC LUMBAR SP 2V CLINICAL HISTORY: Dx: Lumbar Spondylosis. TECHNIQUE: Fluoroscopy was provided for the referring physician for guidance with performing pain clinic injection procedure. COMPARISON: No exams were available for comparison FINDINGS: Please see procedure note for details. Fluoro time: 15 seconds RADIATION DOSE DELIVERED: sarah Love=11.1 mGy
[2025-02-02 08:53] VITALS: BP 162/59; PULSE 68; RESP 20; TEMP 37; O2SAT 98
--- NOTE | 2025-02-02 09:17 | PDOC.PAIN_ITS ---
Date of service: 02/02/25 Time of Service: 09:36 Pain Managment Procedure Note Procedure Note Procedure Note: Lumbar Medial Branch Block ? Location: Bilateral Medial Branches ? Levels: L3,4,5? (L4-5, L5-S1 FACET) ? Pre-procedure Diagnosis: M47.817 Spondylosis without myelopathy or radiculopathy, lumbosacral region M47.816 Spondylosis without myelopathy or radiculopathy, lumbar region ? Post-procedure Diagnosis:? The same as above ? Sedation: NONE? Estimated blood loss:? less than 2 cc ? Surgeon:? Juan Marcano MD COMMENT: Patient has multiple levels of central spinal stenosis as well as facet arthropathy. He had 1 epidural steroid injection which gave him only a few days of excellent relief. His pain is mostly right-sided but he does have left- sided pain. Redo I recommended the right side medial branch blocks but I will do bilat after examining him this am. ? Procedure Detail:? The procedure and potential risks were explained to the patient and informed written consent was obtained. The patient was escorted to the procedure room and placed in the prone position. Pillows were utilized for proper positioning and comfort.? Time out was performed in procedure room with nursing staff confirming the patient's identity, procedure to be performed, allergies, and any blood thinning or anti-platelet medications. The patient's lower back was prepped with chlorhexidine and draped in a sterile fashion. Sterile technique was maintained throughout the procedure.? Sterile gloves were used, a face mask was worn, and new single dose vials of all medications were used with the top being swabbed with alcohol and given time to dry prior to withdrawal of medication.? A left AND right-sided oblique fluoroscopic view was obtained, with visualization of the: ?RIGHT and LEFT L3,4 and DORSAL RAMUS L5 AT SACRAL ALA ? junction of the transverse process and superior articular process. Lidocaine 1% was used to anesthetize the skin. A 5 22-gauge Quincke needle was advanced along the superior margin of the transverse process and lateral to the articular process.? It was directed inferiorly and medially so that the tip struck the junction of the base of the transverse process and the superior articular process. The needle was then walked over the superior aspect of the transverse process and advanced slightly along the course of the L3,4,5 medial branch ne rves. Proper placement was verified in A/P, oblique and lateral views under fluoroscopy. At this location, following negative aspiration, 0.5cc 0.5% bupivacaine was injected.? The patient tolerated the procedure well and was transported to the recovery area for observation and discharge instructions. Permanent images saved and recorded. Follow-up:? The patient will return in 2 weeks for confirmatory LMBBs if they? meet the criteria from today's procedure lasting for at least 2 hours.? COMMENT:Pain went from 02/11 to 05/14. Before the patient left patient had greater than 90% pain relief. Coding Conscious Sedation used for procedure: No CPT Codes: LMBB (includes Fluoro) Lumbar/Sacral, single lvl *BILATERAL* - [id number] ([id number]~G5) LMBB (includes Fluoro) Lumbar/Sacral, 2nd lvl - 43400 ([id number] ~G) LT - LEFT SIDE, RT - RIGHT SIDE Additional Codes: Date of Service (72871) Date of service: 02/02/25 Diagnoses: M47.817 Spondylosis without myelopathy or radiculopathy, lumbosacral region M47.816 Spondylosis without myelopathy or radiculopathy, lumbar region
[2025-02-02 09:19] VITALS: PULSE 77; O2SAT 96
[2025-02-02 09:20] VITALS: PULSE 75; O2SAT 96
[2025-02-02 09:30] VITALS: PULSE 75; O2SAT 97
[2025-02-02] MEDS: Bupivacaine 0.5% Pres-Free 10 ML VIAL IJ (09:41)
[2025-02-02] MEDS: Nerve Block Tray 1 EACH MC (09:41)
== END 2025-02-02 08:47 | disposition home or self-care (01) ==
LOC: PC 08:47
PROVIDERS: PCP Family Medicine; Visit Provider Anesthesiology Pain Medicine
DX: M54.50 Low back pain, unspecified (principal); M47.816 Spondylosis without myelopathy or radiculopathy, lumbar region; M47.817 Spondylosis without myelopathy or radiculopathy, lumbosacral region
CPT/HCPCS: 64493; 64494; 72100; J0665

== ENCOUNTER 2025-02-22 09:19 | Outpatient (CLI) | payer MEDICARE, BC, SELFPAY ==
--- NOTE | 2025-02-22 06:00 | DI.RAD_ITS ---
Exam(s) XR PAIN CLINIC LUMBAR SP 2V EXAM: XR PAIN CLINIC LUMBAR SP 2V CLINICAL HISTORY: DX: Lumbar Spondylosis TECHNIQUE: 2D and realtime digital imaging was performed. CONTRAST MATERIAL: Refer to procedure report. COMPARISON: No exams were available for comparison FINDINGS: Fluoroscopy was provided for Dr. Marcano during the performance of a bilateral lumbar medial branch block. Please refer to the procedure report for complete details. Ka,r=16.7 mGy IMPRESSION: RADIATION DOSE DELIVERED: 0.0 0.0 0
[2025-02-22 09:35] VITALS: BP 175/59; PULSE 65; RESP 18; TEMP 36.8; O2SAT 97
--- NOTE | 2025-02-22 09:56 | PDOC.PAIN ---
Date of service: 02/22/25 Time of Service: 10:14 Pain Managment Procedure Note Procedure Note Procedure Note: LUMBAR MEDIAL BRANCH BLOCK #2 Location: Bilateral Medial Branches ? Levels: L3,4,5? (L4-5, L5-S1 FACET) ? Pre-procedure Diagnosis: M47.817 Spondylosis without myelopathy or radiculopathy, lumbosacral region M47.816 Spondylosis without myelopathy or radiculopathy, lumbar region ? Post-procedure Diagnosis:? The same as above ? Sedation: NONE? Estimated blood loss:? less than 2 ml ? Surgeon:? Juan Marcano MD COMMENT: Patient had? GREATER THAN 80 % relief after the first medial branch block for greater than the duration of the local anesthetic.? Patient has multiple levels of central spinal stenosis as well as facet arthropathy. He had 1 epidural steroid injection which gave him only a few days of excellent relief. PRE PROCEDURE PAIN SCORE: 10/10 ? Procedure Detail:? The procedure and potential risks were explained to the patient and informed written consent was obtained. The patient was escorted to the procedure room and placed in the prone position. Pillows were utilized for proper positioning and comfort.? Time out was performed in procedure room with nursing staff confirming the patient's identity, procedure to be performed, allergies, and any blood thinning or anti-platelet medications. The patient's lower back was prepped with chlorhexidine and draped in a sterile fashion. Sterile technique was maintained throughout the procedure.? Sterile gloves were used, a face mask was worn, and new single dose vials of all medications were used with the top being swabbed with alcohol and given time to dry prior to withdrawal of medication.? A left and right-sided oblique fluoroscopic view was obtained, with visualization of the: ?RIGHT and LEFT L3,4 and DORSAL RAMUS L5 AT SACRAL ALA ? junction of the transverse process and superior articular process. Lidocaine 1% was used to anesthetize the skin. A 22-gauge Quincke needle was advanced along the superior margin of the transverse process and lateral to the articular process.? It was directed inferiorly and medially so that the tip struck the junction of the base of the transverse process and the superior articular process. The needle was then walked over the superior aspect of the transverse process and advanced slightly along the course of the L3,4,5 medial branch nerves. Proper placement was verified in A/P, oblique and lateral views under fluoroscopy. At this location, following negative aspiration, 0.5ml 2% lidocaine was injected.? The patient tolerated the procedure well and was discharged home with instructions. Permanent images saved and recorded. Follow-up:?? Will plan to proceed with lumbar medial branch RFA if the patient gets good relief from today's procedure lasting for at least 2 hours. COMMENT:Pain went from 10/10 to 0/10. Before the patient left patient had 100% pain relief. Coding Conscious Sedation used for procedure: No CPT Codes: LMBB (includes Fluoro) Lumbar/Sacral, single lvl *BILATERAL* - [id number] ([id number]~G5) 50 - BILATERAL PROCEDURE LMBB (includes Fluoro) Lumbar/Sacral, 2nd lvl - 07688 ([id number] ~G) LT - LEFT SIDE, RT - RIGHT SIDE Additional Codes: Date of Service () Diagnoses: M47.817 Spondylosis without myelopathy or radiculopathy, lumbosacral region M47.816 Spondylosis without myelopathy or radiculopathy, lumbar region
[2025-02-22 10:18] VITALS: PULSE 65; O2SAT 97
[2025-02-22] MEDS: Nerve Block Tray 1 EACH MC (10:19)
[2025-02-22] MEDS: Lidocaine 2% Pres-Free 5 ML VIAL IJ (10:19)
== END 2025-02-22 09:20 | disposition home or self-care (01) ==
LOC: PC 09:19
PROVIDERS: PCP Family Medicine; Visit Provider Anesthesiology Pain Medicine
DX: M54.50 Low back pain, unspecified (principal); M47.816 Spondylosis without myelopathy or radiculopathy, lumbar region; M47.817 Spondylosis without myelopathy or radiculopathy, lumbosacral region
CPT/HCPCS: 64493; 64494; 72100

== ENCOUNTER 2025-03-15 08:04 | Outpatient (CLI) | payer MEDICARE, BC, SELFPAY ==
[2025-03-15] VITALS (13 sets, daily range): BP systolic 130–199; BP diastolic 65–129; PULSE 57–104; RESP 13–24; TEMP 37; O2SAT 92–98
--- NOTE | 2025-03-15 09:19 | PDOC.PAIN_ITS ---
Date of service: 03/15/25 Time of Service: 10:18 Pain Managment Procedure Note Procedure Note Procedure Note: Lumbar Medial Branch COOLED Radiofrequency Ablation COMMENT: Patient had greater than 80 % relief after 2 medial branch blocks . ? Location: Bilateral L3, and L4 medial Branches and dorsal ramus of L5 (L4-5, and L5-S1 joints) ? Pre-procedure Diagnosis: M47.817 Spondylosis without myelopathy or radiculopathy, lumbosacral region ? Post-procedure Diagnosis:? The same as above ? Sedation:?Intravenous line started 1mg of intravenous midazolam and fentanyl 75 mcg?were administered. An independent trained observer monitored the patient for the duration of the procedure.? Estimated blood loss:? less than 2 ml ? Surgeon: Juan Marcano MD ? Procedure Detail:? The procedure and potential risks were explained to the patient and informed written consent was obtained. The patient was escorted to the procedure room and placed in the prone position. Pillows were utilized for proper positioning and comfort. Time out was performed in the procedure room with nursing staff confirming the patient's identity, procedure to be performed, allergies, and any blood thinning or anti-platelet medications. The patient's lower back was prepped with ChloraPrep and draped in a sterile fashion.? Sterile technique was maintained throughout the procedure.? Sterile gloves were used, a face mask was worn, and new single dose vials of all medications were used with the top being swabbed with alcohol and given time to dry prior to withdrawal of medication. A left AND right-sided oblique fluoroscopic view was obtained, with visualization of the L4 junction of the transverse process and superior articular process. 2% lidocaine was used to anesthetize the skin. With fluoroscopic guidance, an 17 gauge 4mm active tip RF cannula was advanced to the superior margin of the transverse process and lateral to the superior articular process.? It was directed inferiorly and medially so that the tip struck the junction of the base of the transverse process and the superior articular process. The needle was then slightly advanced along the course of the L3 medial branch nerve. Proper placement was verified with oblique, AP, and lateral fluoroscopic views. Sensory tested with good response less than 1V. Motor testing was performed and was negative at 2V except for expected multifidus activation. A similar procedure was also performed at the ipsilateral L4 medial branch nerves and the dorsal ramus of L5 with negative motor testing at 2V except for expected multifidus activation. 1 ml of 2% lidocaine was injected th rough each needle tip to anesthetize the medial branch nerves.? After waiting for the local anesthetic to take effect, each nerve was then ablated at 60 degrees Celsius for 150 seconds. This was repeated on the opposite side at the same levels. The patient was monitored for any severe pain or radicular pain during the ablation and reported none. The patient tolerated the procedure well, and was discharged in stable condition.? Permanent images were saved and recorded. PAIN: PRE PROCEDURE 01/12 POST PROCEDURE Plan: F/U PRN COMMENT: Repeat prn if 6 months relief of 50% Coding Conscious Sedation used for procedure: Yes CPT Codes: Moderate sedation; First 15 min - 86977 (70442) Moderate sedation; add. 15 increments - 22059 (31922) Single Facet Joint, Lumbar/Sacral *BILATERAL* - [id number] ([id number]~G) 50 - BILATERAL PROCEDURE Single Facet Joint, Lumbar/Sacral cool each add'l - 60926P ([id number]~G) RT - RIGHT SIDE, LT - LEFT SIDE Additional Codes: Date of Service () Diagnoses: M47.817 Spondylosis without myelopathy or radiculopathy, lumbosacral region
[2025-03-15] MEDS: fentaNYL 100 MCG/2 ML VIAL IVP ×2 (09:35→09:40)
[2025-03-15] MEDS: Midazolam 2 MG/2 ML VIAL IVP (09:35)
[2025-03-15] MEDS: Nerve Block Tray 1 EACH MC (09:48)
[2025-03-15] MEDS: Lactated Ringers 500 ML 30 ML IV (09:48)
[2025-03-15] MEDS: Lidocaine 2% Multi-Dose 20 ML VIAL IJ (10:14)
--- NOTE | 2025-03-15 10:16 | DI.RAD_ITS ---
Exam(s) XR PAIN CLINIC LUMBAR SP 2V EXAM: XR PAIN CLINIC LUMBAR SP 2V CLINICAL HISTORY: Dx: Lumbar Spondylosis. TECHNIQUE: Fluoroscopy was provided for the referring physician for guidance with performing pain clinic injection procedure. COMPARISON: No exams were available for comparison FINDINGS: Please see procedure note for details. Fluoro time: 47.1 seconds RADIATION DOSE DELIVERED: sarah Love=38.4 mGy
== END 2025-03-15 08:05 | disposition home or self-care (01) ==
LOC: PC 08:05
PROVIDERS: PCP Family Medicine; Visit Provider Anesthesiology Pain Medicine
DX: M54.50 Low back pain, unspecified (principal); M47.817 Spondylosis without myelopathy or radiculopathy, lumbosacral region
CPT/HCPCS: 64635; 64636; 72100; J2003; J2250; J3010